=== PATIENT | female | born 1950 | race Caucasian/White ===

== ENCOUNTER 2017-12-01 17:46 | Inpatient (IN) | payer OTHER ==
[~2017-12-01] VITALS: Ht 167.6 cm; Wt 77.6 kg
--- NOTE | ~2017-12-01 | PR ---
[place], [place] PROGRESS NOTE NAME: OSVALDO RUSH UNIT #: [id number] ROOM: 311 DOCTOR: JENNY GARCIA DO BIRTHDATE: [birth year] DOS: 12/06/2017 CHIEF COMPLAINT: "Need medication." SUMMARY OF VISIT: The patient was interviewed in the dining room. She continues to complain to staff as well as Dr. Darling and myself of auditory and visual hallucinations. She had described wires and showed us wires in her bed that made up her bed alarm and she was concerned that these would be a bomb and she had this behavior again yesterday. We attempted to redirect her and explain that was a bed alarm to be up for her safety and that multiple nurses would come from the patino. She says she feels like she needs her medicines stabilized. MENTAL STATUS: She is alert and oriented . Mood seems to be more euthymic but can shift and change dramatically depending upon the time. She still displays visual and auditory hallucinations with delusions. Memory shows short-term gaps. PLAN: We will increase her Exelon capsules to 3 mg b.i.d., increasing her Seroquel to 200 mg at night in order to help her sleep. Klonopin was discontinued and we will continue her Depakote. We will continue to monitor and support and engage the patient in individual and group activities, returning to the least restrictive environment when stable. EJNNY GARCIA DO WINSOME DARLING MD CM:PNTRANS [id number] JENNY GARCIA DO 12/06/178 interface
--- NOTE | ~2017-12-01 | PR ---
[place], [place] PROGRESS NOTE NAME: OSVALDO RUSH UNIT #: [id number] ROOM: 311 DOCTOR: JENNY GARCIA DO BIRTHDATE: [birth year] DOS: 12/13/2017 CHIEF COMPLAINT: "I am not stopping to eat my breakfast." SUMMARY OF THE VISIT: The patient was interviewed in the dining patino where she was eating her breakfast and states that she wanted to eat her breakfast when it was warm. She continues to state her concerns about her finances and that she needs to them up. We discussed that we would plan for discharge for [facility] where she was before. MENTAL STATUS: This morning, she is alert and oriented. Mood seemed to be very euthymic. Affect is more appropriate. Do not have any symptoms of bianca or hypomania without overt auditory or visual hallucinations at this time, though she has had problems with them in the past. Short-term memory of events is poor. PLAN: We will increase her Namenda to 5 mg b.i.d. and will continue to monitor her other psychotropic regimen. We will continue to engage her in individual and group activities, returning back to [facility] when psychiatrically stable, possibly for tomorrow. JENNY GARCIA DO WINSOME DARLING MD CM:PNPIYUSH [id number] JENNY GARCIA DO 12/13/17 1224 interface
--- NOTE | ~2017-12-01 | PR ---
[place], [place] PROGRESS NOTE NAME: OSVALDO RUSH UNIT #: [id number] ROOM: 311 DOCTOR: JENNY GARCIA DO BIRTHDATE: [birth year] DOS: 12/07/2017 CHIEF COMPLAINT: "I didn't know who was involved in the contests." SUMMARY OF VISIT: The patient was interviewed in a dining room while eating breakfast. She stated that she did not know who was involved in the contests and appeared to have paranoid and delusional thoughts concerning that someone was plotting against her and to cause her harm or damage. According to staff, these thoughts had seemingly increased throughout the day yesterday. It can be related to the discontinuation of the Seroquel and the institution of the low dose of Fanapt and continue to monitor. MENTAL STATUS: She is alert, but has captured memory. Mood seems to be euthymic with quick shifts. She still does have paranoid, delusions and hallucinations that had seemed to worsen over the past day. PLAN: As discussed above, her increased delusions and paranoid, decrease in the Seroquel. The Fanapt will be increased to 4 mg b.i.d. and we will increase her Exelon patch as well to 6 mg b.i.d. We will monitor blood pressure to avoid orthostatic hypertension, encourage fluids as well as snacking. Discussed with nursing staff to monitor patient and again encourage fluids and possible snacking. If she were to have any signs and symptoms, please call medicine team. If the symptoms get worse, we will continue her other medications and her current dose of Depakote. We will continue to support, monitor and engage the individual and group activities. Returning to the least restrictive environment when she is psychiatrically stable. Encourage nursing staff to introduce themselves and discuss with the patient as this is the safe environment and they will be monitoring who comes, who leaves to make sure that they are supposed to be here to encourage the safety of all of the patients that we have including her. JENNY GARCIA DO [place], [place] PROGRESS NOTE NAME: OSVALDO RUSH UNIT #: [id number] ROOM: [facility] DOCTOR: JENNY GARCIA DO BIRTHDATE: [birth year] WINSOME DARLING MD CM:PNTRANS [id number] JENNY GARCIA DO 12/08/17 233 interface
--- NOTE | ~2017-12-01 | PR ---
[place], [place] PROGRESS NOTE NAME: OSVALDO RUSH UNIT #: [id number] ROOM: 311 DOCTOR: JENNY GARCIA DO BIRTHDATE: [birth year] DOS: 12/07/2017 CHIEF COMPLAINT: "Shaking a little bit, but it's better." SUMMARY OF THE VISIT: The patient was interviewed in the dining home. She states that her shaking and tremors have improved slightly. States that she is having a good morning and is able to eat her breakfast. She does complain that her knees are hurting her and often crack. She states that she is concerned about her finances. Per staff, she had hallucinations last night where she was looking for money in a shower drain and she had accused one of the staff of stealing a significant amount of money. I believe this relates back to her financial issues with her family and previously, she had told us that she met Dr. Stern in a hotel and was seeing him in therapy at that time and was worried how she is going to pay for that. MENTAL STATUS: She is alert and oriented with gaps. Mood seems to be euthymic but it can shift quickly and she continues to have hallucinations reported by staff. She does have short-term memory gaps. PLAN: We will discontinue the Seroquel and began Fanapt 1 mg twice daily. We will encourage to monitor blood pressure to avoid orthostatic hypotension and we will increase the Exelon patch to 4.5 mg b.i.d. Continue her other medications and her current dose of Depakote. We will continue to support, monitor and engage in individual and group activities, returning to the least restrictive environment when psychiatrically stable. JENNY GARCIA DO WINSOME STERN MD CM:PNTRANS [id number] JENNY GARCIA DO 12/07/17 1104 interface
--- NOTE | ~2017-12-01 | WRIGHTHP ---
[place], [place] PATIENT HISTORY AND PHYSICAL EXAM NAME: OSVALDO RUSH UNIT #: [id number] ROOM: 311 DOCTOR: WINSOME DARLING MD BIRTHDATE: [birth year] DOS: 12/04/2017 INITIAL PSYCHIATRIC EVALUATION CHIEF COMPLAINT: "I am here to get my meds adjusted." HISTORY OF PRESENT ILLNESS: This is a 67-year-old white female well known to me from her stay at [facility] in [place], [place]. The patient has a lengthy history of schizoaffective disorder as well as Craig's disease. Most recently, she has become increasingly more psychotic. She believes the doctors have decided to place maggots into her stomach and also has been seeing things that are not there. She was to be admitted to the psychiatric floor, but did have some ongoing medical issues that required her to be stabilized medically first. She is now brought down to the psychiatric unit for further psychiatric stabilization. PAST MEDICAL HISTORY: Remarkable for asthma, CVA, hypertension, GERD, glaucoma, hyperlipidemia, Craig's disease, hypomagnesemia, hypothyroidism, macrocytic anemia, metabolic encephalopathy, schizoaffective disorder and severe protein calorie malnutrition. MENTAL STATUS: The patient is alert and oriented with time gaps. She is fairly bright and pleasant. She does endorse multiple psychotic symptoms and does admit to hearing things and seeing things that are not there. She does have gaps in her short term memory and does process slowly at times. 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 PLAN: I will gradually start to taper the Klonopin to simplify her medication regimen. I would like to see if we can utilize a medicine specifically for Craig's movements such as Nuplazid or Austedo. I will go ahead and start her on Exelon patch 4.6 mg a day, continue to engage in individual and rajan milieu activity, returning to the least restrictive environment when psychiatrically stable. [place], [place] PATIENT HISTORY AND PHYSICAL EXAM NAME: OSVALDO RUSH UNIT #: [id number] ROOM: 311 DOCTOR: WINSOME DARLING MD BIRTHDATE: [birth year] WINSOME DARLING MD CM:HISPHYS:PATIENT HISTORY AND PHYSICAL EXAMINATION [id number] WINSOME DARLING MD 12/19/17 1550 interface
--- NOTE | ~2017-12-01 | PR ---
[place], [place] PROGRESS NOTE NAME: OSVALDO RUSH UNIT #: [id number] ROOM: 311 DOCTOR: WINSOME DARLING MD BIRTHDATE: [birth year] DOS: 12/10/2017 CHIEF COMPLAINT: "I think I feel better." SUMMARY OF THE VISIT: The patient was interviewed as she was finishing getting ready in the morning in her room. She reports that she is feeling a little better, a little tired from the medicines, but otherwise no other side effects are noted. Her tremor seemed to have lessened in frequency and intensity. She was complaining of some arthritic pain, but stated that the nurse gave her some Motrin yesterday, which seemed to help. MENTAL STATUS: She is alert and oriented. She does have some time gaps. Mood does seem to be trending towards euthymia. Affect is more appropriate. There is no bianca or hypomania and the delusions seem to be lessening in frequency and intensity. Short term memory has gaps. PLAN: I will increase her Fanapt slightly, bringing the morning dose to 8 mg in the morning and the nighttime dose to 12 mg at bedtime. Support and redirect. Engage in individual and rajan milieu activity, returning to the least restrictive environment when stable. WINSOME DARLING MD CM:PNTRANS [phone] WINSOME DARLING MD 12/10/17 1122 interface
--- NOTE | ~2017-12-01 | PR ---
[place], [place] PROGRESS NOTE NAME: OSVALDO RUSH UNIT #: [id number] ROOM: 311 DOCTOR: WINSOME DARLING MD BIRTHDATE: [birth year] DOS: 12/05/2017 CHIEF COMPLAINT: "I see the little people over there." SUMMARY OF THE VISIT: The patient was interviewed in her room as she was resting in bed. She continues to complain of auditory and visual hallucinations. This has been ongoing not only with me, but with nursing staff. She is tolerating the current medication regimen well. I would still like to explore the possibility of utilizing one of the newer drugs, specifically targeting Taras's disease. MENTAL STATUS: She is alert and oriented with gaps. Mood does seem to be more euthymic, but it also shifts rather dramatically from time to time and there is still the presence of significant psychosis. Memory for the most part shows short term gaps, but long-term is intact. PLAN: I will continue to titrate the Exelon upwards bringing it from 4.6 to 9.5 mg a day. Discontinue the Klonopin to simplify her regimen. Valproic acid level is therapeutic at 71.5. We will maintain her current dose of Depakote ER. Continue to support and monitor, engage in individual and rajan milieu activity, returning to the least restrictive environment when stable. WINSOME DARLING MD CM:PNTRANS [phone] WINSOME DRALING MD 12/05/17 1025 interface
--- NOTE | ~2017-12-01 | DS ---
[place], [place] DISCHARGE SUMMARY NAME: OSVALDO RUSH UNIT #: [id number] ROOM: 311 DOCTOR: WINSOME DARLING MD BIRTHDATE: [birth year] DOS: 12/14/2017 CHIEF COMPLAINT: "I am here to get my meds adjusted." HISTORY OF PRESENT ILLNESS: This is a 67-year-old white female well known to me from her stay at [facility] in [place], [place]. The patient has a rather lengthy history of schizoaffective disorder as well as Montague's disease. Most recently, she has become increasingly more psychotic and delusional. She believes the doctors have decided to order maggots to be placed in her stomach and also has been seeing things that are not there. She has been responding to these hallucinations. She has seen everything from snakes on the ground to small animals running through the halls of the residential. She was admitted now to [facility] at [facility] to rule out further organic issues, to stabilize on medication and to engage in individual and rajan milieu activity. PAST MEDICAL HISTORY: Remarkable for asthma, CVA, hypertension, GERD, glaucoma, hyperlipidemia, hypothyroidism, anemia, metabolic encephalopathy, protein calorie malnutrition, the Montague's disease and a lengthy history of schizoaffective disorder. SUMMARY OF HOSPITAL COURSE: The patient was admitted to the unit where I tapered and discontinued her Klonopin to simplify her medication regimen. Because there was a significant cognitive issue, I did start her on Exelon patch 4.6 mg a day and gradually this was titrated upwards to its maximum dose of 13.3 mg a day. Towards the latter part of her stay, this was augmented with Namenda 5 mg a day and then increased to 5 mg twice a day. Upon her return to [facility], I will further titrate this. To deal with the psychotic symptoms, she was reloaded with Invega Sustenna 156 mg IM. Nonetheless, her delusions persisted, so I ultimately needed to augment the effectiveness of the Invega with Fanapt. Fanapt was chosen as a secondary antipsychotic because of its low risk of extrapyramidal symptoms and tardive dyskinesia. The Fanapt dose was gradually increased from 1 mg twice a day to its maximum dose that she was on, which was 8 mg in the morning and 12 mg at night. With that combination of medication, the patient did have a significant alleviation of symptomatology. Nurses report she still had episodes of experiencing hallucinations, but these were much less frequent and less intense and she was able to be redirected readily. There was no agitation or aggression and there was no acting out on these beliefs. The patient tolerated the drug regimen well without any apparent side effects. There was no sedation, somnolence, extrapyramidal symptoms or tardive dyskinesia. The patient was improved well enough to be returned back to [facility]. I will follow her along with one of my nurse practitioners when she returns. MENTAL STATUS AT DISCHARGE: The patient is alert and oriented to person, place, very approximate to time. Mood does seem to be strongly trending towards euthymia. Affect is more appropriate. There is no bianca or hypomania. There are no overt auditory or visual hallucinations during my examination. Short term memory has some gaps, otherwise she is intact. [place], [place] DISCHARGE SUMMARY NAME: OSVALDO RUSH UNIT #: [id number] ROOM: [facility] DOCTOR: WINSOME DARLING MD BIRTHDATE: [birth year] FINAL DIAGNOSIS: Schizoaffective disorder. DISPOSITION: To return back to [facility]. I will follow her upon her return. PLAN: All of her prescriptions have been printed and will be sent with her. She is medically and psychiatrically stable. Her biopsychosocial needs will be met by the staff at [facility]. WINSOME DARLING MD CM:DISCHARG [id number] WINSOME DARLING MD 12/14/17 1339 interface
--- NOTE | ~2017-12-01 | PR ---
[place], [place] PROGRESS NOTE NAME: OSVALDO RUSH UNIT #: [id number] ROOM: 311 DOCTOR: WINSOME DARLING MD BIRTHDATE: [birth year] DOS: 12/11/2017 CHIEF COMPLAINT: "Make certain I have my medicine. All they told me I have left is Motrin." SUMMARY OF THE VISIT: The patient was interviewed as she rested quietly in bed. She was convinced that the only medicine that she had on her chart was Motrin and she was not receiving any of her other medicines. I redirected her and supported her and let her know that this was not the case and that I would have the nurse later go over her medication list with her. She nodded in approval. Overall, there does seem to be a slight trend in improvement. MENTAL STATUS: She is alert and oriented to person, place, and approximate to time. Mood does seem to be trending towards euthymia. Affect is more appropriate. There is no bianca or hypomania. She remains somewhat delusional, but this tends to fluctuate. Memory has gaps. PLAN: I will renew her Symmetrel and Lotrimin. Maintain her other medications. Engage in individual and rajan milieu activities, returning to the least restrictive environment when stable. WINSOME DARLING MD CM:PNTRANS 4 WINSOME DARLING MD 12/11/1704 interface
--- NOTE | ~2017-12-01 | PR ---
[place], [place] PROGRESS NOTE NAME: OSVALDO RUSH UNIT #: [id number] ROOM: 311 DOCTOR: WINSOME DARLING MD BIRTHDATE: [birth year] DOS: 12/12/2017 CHIEF COMPLAINT: "Oh there you are, I am feeling better." SUMMARY OF THE VISIT: The patient was interviewed as we walked in the patino down towards the group therapy room. She did report that she is sleeping better and overall feels much better. I did discuss with her that I was at [facility] on Tuesday and multiple nurses did come up to me asking how she was doing, this seemed to tickle her and she smiled readily. She does seem to be improving day by day. Nurses note that sometimes in the late evening or at night some of her psychotic symptoms seem to peak, but she is more redirectable. She is tolerating the current medication regimen well. MENTAL STATUS EXAMINATION: This morning, she is alert and oriented times 3. Mood does seem to be fairly euthymic. Affect more appropriate. There is no bianca or hypomania. There are no overt auditory or visual hallucinations at this point. Memory for short term events is poor, otherwise she is intact. PLAN: I will go ahead and augment her current regimen with Namenda 5 mg a day as I begin to titrate this upward to augment the effectiveness of the Exelon. We will continue her current dose of Fanapt and Invega Sustenna, engage in individual and rajan milieu activity, returning back then to [facility] when psychiatrically stable. WINSOME DARLING MD CM:PNTRANS [phone] WINSOME DARLING MD 12/12/17 1056 interface
--- NOTE | ~2017-12-01 | PR ---
[place], [place] PROGRESS NOTE NAME: OSVALDO RUSH UNIT #: [id number] ROOM: 311 DOCTOR: JENNY GARCIA DO BIRTHDATE: [birth year] DOS: 12/09/2017 CHIEF COMPLAINT: "I want to talk to the doctor right now." SUMMARY OF VISIT: The patient was interviewed in the dining room. The patient was previously agitated and mentioned she wanted to speak to Dr. Stern several times. She stated that she was not feeling well and wanted to talk to Dr. Stern personally without other individuals present. Per the nursing staff, her paranoid and delusional thoughts have increased. Her visual and auditory hallucinations have also increased. They report that she is seeing snakes, curling out of worms, and seeing other various things. MENTAL STATUS: She is alert. Her mood is euthymic but she does have some significant changes and she continues to have paranoia. Auditory and visual hallucinations and delusion that seemed to be worsening over the past 2 days. PLAN: Her Seroquel was discontinued few days ago and ____ has been slowly increased. We will increase it to 6 mg in the morning and 2 mg at night. We will continue to monitor her pressure and encourage that she drink fluids as well as eat snacks if needed. We discussed with nursing staff to monitor and we will continue her other current regimen at this time. We will continue to engage her and promote group individual activities and therapy and plan for discharge to the least restrictive environment when psychiatrically stable. JENNY GARCIA DO WINSOME STERN MD CM:PNPIYUSH [id number] JENNY GARCIA DO 12/10/17 0439 interface
[~2017-12-01 17:46] MED LIST: ALBUTEROL 3 ML 33 ML INH; ATIVAN PO; ATIVAN2 M1 IM; ATORVASTATIN CA20 M1 PO; BENADRYL25 M2 PO; CLOPIDOGREL75 MG PO; DIVALPROEX SOD500 MG PO; DRISDOL50000 IU PO; FLOVENT HFA12 GM INH; FUROSEMIDE20 M1 PO; GEODON20 MG IM; INVEGA SUSTENN156 MG IM; INVEGA9 MG PO; LEVOTHYROXINE0.1 M1 PO; LISINOPRIL20 MG PO; LUMIGAN50 DRP OPH; MELATONIN3 MG PO; MUCINEX ER600 MG PO; NUED1CAP PO; QUETIAPINE FUM100 M3 PO; RANITIDINE75 MG PO; SYSTANE ULTRA 010 M1 OP; TETRABENAZINE12.5 MG PO; TRAMADOL HCL50 MG PO; [UNRECOGNIZED DRUG - OTHER] IM
[2017-12-01] MEDS ORDERED: LOTRIMIN AF12 GM T (18:14)
[2017-12-01] MEDS ORDERED: MILK OF MA400 MG/5 M PO (18:16)
[2017-12-01] MEDS ORDERED: [UNRECOGNIZED DRUG - OTHER] PO (18:17)
[2017-12-01] MEDS ORDERED: INVEGA SUSTENN156 MG IM (18:18)
[2017-12-01] MEDS ORDERED: ROBITUSSIN5 ML PO (18:20)
[2017-12-01] MEDS ORDERED: SYSTANE 0.3-0.415 ML OU (18:21)
[2017-12-01] MEDS ORDERED: TETRABENAZINE12.5 MG PO (18:22)
[2017-12-01] MEDS ORDERED: TYLENOL325 M1 PO (18:23)
[2017-12-01] MEDS ORDERED: DEPAKOTE ER500 MG PO (18:25)
[2017-12-01] MEDS ORDERED: DULCOLAX10 M1 R (18:26)
[2017-12-01] MEDS ORDERED: VITAMIN D50000 UNIT PO (18:27)
[2017-12-01] MEDS ORDERED: EXELON1 EAC1 T (18:28)
[2017-12-01] MEDS ORDERED: FLOVENT HFA12 GM INH (18:29)
[2017-12-01] MEDS ORDERED: NEURONTIN300 MG PO (18:30)
[2017-12-01] MEDS ORDERED: HALOPERIDOL5 MG PO (18:31)
[2017-12-01] MEDS ORDERED: KLONOPIN0.5 MG PO (18:32)
[2017-12-01] MEDS ORDERED: LEVOTHYROXINE100 MC1 PO (18:33)
[2017-12-01] MEDS ORDERED: ACCUNEB 0.1.25 MG/1 INH (18:34)
[2017-12-01] MEDS ORDERED: AMANTADINE HCL100 M1 PO (18:35)
[2017-12-01] MEDS ORDERED: ALDACTONE25 M1 PO (18:35)
[2017-12-01] MEDS ORDERED: CYMBALTA60 MG PO (18:36)
[2017-12-01] MEDS ORDERED: ASPIRIN81 M1 PO (18:36)
[2017-12-01] MEDS ORDERED: IBUPROFEN600 MG PO (18:48)
[2017-12-02] MEDS ORDERED: HALDOL5 MG PO (16:07)
[2017-12-03] MEDS ORDERED: MIRTAZAPINE15 M2 PO (13:49)
[2017-12-03 20:30] VITALS: BP 146/64
[2017-12-03 23:17] VITALS: BP 146/64
[2017-12-04 07:48] VITALS: BP 137/78
[2017-12-04 20:00] VITALS: BP 146/77
[2017-12-05 07:35] VITALS: BP 140/80
[2017-12-05 20:00] VITALS: BP 121/76
[2017-12-06 08:18] VITALS: BP 119/82
[2017-12-06 19:56] VITALS: BP 116/64
[2017-12-07 08:18] VITALS: BP 119/81
[2017-12-07 08:36] VITALS: BP 119/81
[2017-12-07 20:00] VITALS: BP 131/75
[2017-12-08 08:57] VITALS: BP 122/76
[2017-12-08 21:00] VITALS: BP 113/66
[2017-12-09 07:26] VITALS: BP 124/76
[2017-12-09 20:21] VITALS: BP 109/62
[2017-12-10 07:22] VITALS: BP 136/70
[2017-12-10 19:33] VITALS: BP 145/81
[2017-12-11 07:23] VITALS: BP 129/69
[2017-12-11 19:43] VITALS: BP 131/71
[2017-12-12 07:54] VITALS: BP 116/64
[2017-12-12 20:26] VITALS: BP 111/58
[2017-12-13 08:02] VITALS: BP 119/67
[2017-12-13 19:37] VITALS: BP 124/68
[2017-12-14 09:23] VITALS: BP 138/73
[2017-12-14] MEDS ORDERED: NAMENDA-5 PO (11:19)
[2017-12-14] MEDS ORDERED: INVEGA SUSTENN156 MG IM (11:19)
[2017-12-14] MEDS ORDERED: FANAPT8 MG PO (11:19)
[2017-12-14] MEDS ORDERED: DIVALPROEX SOD500 M1 PO (11:19)
[2017-12-14] MEDS ORDERED: RIVASTIGMINE TAR3 M1 PO (11:19)
[2017-12-14] MEDS ORDERED: FANAPT12 MG PO (11:19)
[2017-12-14] MEDS ORDERED: MIRTAZAPINE15 M2 PO (11:19)
[2017-12-14] MEDS ORDERED: Lidoderm 5% Patch T (13:54)
== END 2017-12-14 15:20 | disposition other institution (70) | DRG 885 ==
LOC: 3N 17:46
DX: F25.9 Schizoaffective disorder, unspecified (principal); N17.0 Acute kidney failure with tubular necrosis; A41.9 Sepsis, unspecified organism; E87.2 Acidosis; E44.0 Moderate protein-calorie malnutrition; J18.0 Bronchopneumonia, unspecified organism; D53.1 Other megaloblastic anemias, not elsewhere classified; F22 Delusional disorders; G10 Huntington's disease; F02.80 Dementia in other diseases classified elsewhere, unspecified severity, without behavioral disturbance, psychotic disturbance, mood disturbance, and anxiety; J45.909 Unspecified asthma, uncomplicated; E03.9 Hypothyroidism, unspecified; E78.5 Hyperlipidemia, unspecified; H40.9 Unspecified glaucoma; I10 Essential (primary) hypertension; Z86.73 Personal history of transient ischemic attack (TIA), and cerebral infarction without residual deficits; K21.9 Gastro-esophageal reflux disease without esophagitis; F31.9 Bipolar disorder, unspecified; D72.829 Elevated white blood cell count, unspecified; F10.10 Alcohol abuse, uncomplicated; Z87.891 Personal history of nicotine dependence; Z88.7 Allergy status to serum and vaccine

== ENCOUNTER 2017-12-02 11:25 | Inpatient (IN) | payer OTHER ==
[~2017-12-02] VITALS: Ht 167.6 cm; Wt 81.6 kg
--- NOTE | ~2017-12-02 | EKG ---
[place], [place] ELECTROCARDIOGRAM REPORT NAME: OSVALDO RUSH UNIT #: [id number] ROOM: [facility] DOCTOR: CAMILO LOCKHART,SARI BIRTHDATE: [birth year] DOS: 12/02/2017 TIME: 11:56. IMPRESSION: 1. Sinus rhythm. 2. Baseline artifacts. 3. Nondiagnostic inferolateral ST-T changes. 4. Normal QT interval. SARI PAGE MD CM:EKGRPT:ELECTROCARDIOGRAM REPORT [id number] SARI PAGE MD
--- NOTE | ~2017-12-02 | CON ---
[place], [place] REPORT OF CONSULTATION NAME: OSVALDO RUSH UNIT #: [id number] ROOM: 525 DOCTOR: WINSOME DARLING MD BIRTHDATE: [birth year] DOS: 12/03/2017 CHIEF COMPLAINT: "Oh the pain was so bad." HISTORY OF PRESENT ILLNESS: This is a 67-year-old white female who is well known to me from her stay at [facility] [place] in [place], [place]. The patient had undergone a significant change in mental status while there, becoming acutely psychotic and manic. The patient started stating that someone had dumped a whole bucket of maggots into her stomach because someone thought it would just be a cool thing to do. The patient had become noncompliant with all aspects of her care, refusing meds, refusing food and fluids and becoming verbally and physically combative with staff. The patient was sent to the Emergency Room at [facility] for medical clearance; however, she was found to have significant medical issues that needed to be addressed first, so she was ultimately sent to the 5th floor at [facility] for medical stabilization, awaiting admission to the [facility]. PAST MEDICAL HISTORY: Remarkable for a long history of schizoaffective disorder as well as a significant history of Flaxville's disease. MENTAL STATUS EXAMINATION: The patient is alert and oriented to person, place. She did recognize me, but could not place where she remembered me from and she is very approximate to time. Mood does seem to be somewhat labile. 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 She also notes fluctuations in her appetite. She does jump from topic to topic and is somewhat flighty in her overall level of organization. She does endorse marked delusions. DIAGNOSES: Schizoaffective disorder and Flaxville's disease. PLAN: I will go ahead and discontinue the Cymbalta in lieu of Remeron 15 mg at bedtime as this should aid sleep and improve appetite much more rapidly. The patient was on a higher dose of Depakote ER at the [facility] [place], so I will increase Depakote ER from 500 mg at bedtime to 1500 mg at bedtime. I will eliminate Restoril to simplify her drug regimen. Once you feel that she is medically stable, I am okay with transferring her to the [facility] for further medication stabilization, awaiting admission back to [facility] when stable. [place], [place] REPORT OF CONSULTATION NAME: OSVALDO RUSH UNIT #: [id number] ROOM: [facility] DOCTOR: WINSOME DARLING MD BIRTHDATE: [birth year] WINSOME DARLING MD CM:CONSTR:REPORT OF CONSULTATION 1 12/03/17924 interface
[~2017-12-02 11:25] MED LIST changes: +ACCUNEB 0.1.25 MG/1 INH; +ALDACTONE25 M1 PO; +AMANTADINE HCL100 M1 PO; +ASPIRIN81 M1 PO; +CYMBALTA60 MG PO; +DEPAKOTE ER500 MG PO; +DULCOLAX10 M1 R; +EXELON1 EAC1 T; +HALOPERIDOL5 MG PO; +IBUPROFEN600 MG PO; +KLONOPIN0.5 MG PO; +LEVOTHYROXINE100 MC1 PO; +LOTRIMIN AF12 GM T; +MILK OF MA400 MG/5 M PO; +NEURONTIN300 MG PO; +ROBITUSSIN5 ML PO; +SYSTANE 0.3-0.415 ML OU; +TYLENOL325 M1 PO; +VITAMIN D50000 UNIT PO; +[UNRECOGNIZED DRUG - OTHER] PO
[2017-12-02 11:30] VITALS: BP 130/71
[2017-12-02 12:02] LABS: BASO % 0.3 % (0.0-1.0); EOS # 0.1 10*3/uL (0.0-0.4); EOS % 2.3 % (1.0-4.0); HEMATOCRIT 31.4 % (37.0-47.0); HEMOGLOBIN 10.6 g/dl (12.0-16.0); LYMPH # 1.7 10*3/uL (1.3-4.4); LYMPH % 27.2 % (27.0-41.0); MEAN CELL VOLUME 105.4 fl (81.0-99.0); MEAN CORPUSCULAR HGB 35.6 pg (27.0-31.0); MEAN CORPUSCULAR HGB CONC 33.8 g/dl (33.0-37.0); MEAN PLATELET VOLUME 10.2 fl (9.6-12.3); MONO # 0.7 10*3/uL (0.1-1.0); MONO % 11.4 % (3.0-9.0); NEUT # 3.6 10*3/uL (2.3-7.9); NEUT % 58.3 % (47.0-73.0); PLATELET COUNT AUTOMATED 118 10*3/uL (130-400); RED BLOOD COUNT 2.98 10*6/uL (4.10-5.10); RED CELL DISTRI WIDTH 14.3 % (0-14.5); WHITE BLOOD COUNT 6.2 10*3/uL (4.8-10.8)
[2017-12-02 12:10] LABS: ACT PARTIAL THROMBO TIME 23.7 SECONDS (20.8-31.5)
[2017-12-02 12:18] LABS: ALBUMIN 2.9 gm/dl (3.1-4.5); ALKALINE PHOSPHATASE 68 U/L (45-117); BUN 23 mg/dl (7-24); CHLORIDE 107 mmol/L (98-107); CREATININE 1.06 mg/dL (0.55-1.02); LIPASE 119 U/L (73-393); POTASSIUM 4.3 mmol/L (3.5-5.1); SGOT/AST 23 IU/L (3-35); SGPT/ALT 37 U/L (12-78); SODIUM 142 mmol/L (136-145); TOTAL PROTEIN 6.5 gm/dL (6.4-8.2)
[2017-12-02 12:22] LABS: TROPONIN I < 0.015 ng/ml (<0.045)
[2017-12-02 12:27] LABS: VALPROIC ACID (DEPAKENE) 97.3 ug/ml (50-100)
[2017-12-02 12:44] LABS: BILIRUBIN NEGATIVE (NEGATIVE); BLOOD NEGATIVE (NEGATIVE); CLARITY SL CLOUDY (CLEAR); COLOR YELLOW (YELLOW); GLUCOSE NEGATIVE (NEGATIVE); KETONE TRACE (NEGATIVE); LEUKO ESTERASE NEGATIVE (NEGATIVE); NITRITE NEGATIVE (NEGATIVE); PH 5.5 (5.0-9.0); SPECIFIC GRAVITY 1.025 (1.005-1.030)
[2017-12-02 12:51] LABS: BACTERIA 1+
[2017-12-02 14:52] VITALS: BP 134/89
[2017-12-02 16:00] VITALS: BP 137/98
[2017-12-02] MEDS ORDERED: HALDOL5 MG PO (16:07)
[2017-12-02 20:00] VITALS: BP 114/80
[2017-12-03] VITALS: BP 113/55
[2017-12-03 07:25] LABS: BASO % 0.2 % (0.0-1.0); EOS # 0.1 10*3/uL (0.0-0.4); EOS % 1.4 % (1.0-4.0); HEMATOCRIT 30.8 % (37.0-47.0); LYMPH # 1.3 10*3/uL (1.3-4.4); LYMPH % 23.4 % (27.0-41.0); MEAN CELL VOLUME 105.5 fl (81.0-99.0); MEAN CORPUSCULAR HGB 34.2 pg (27.0-31.0); MEAN CORPUSCULAR HGB CONC 32.5 g/dl (33.0-37.0); MEAN PLATELET VOLUME 10.8 fl (9.6-12.3); NEUT # 3.3 10*3/uL (2.3-7.9); NEUT % 57.8 % (47.0-73.0); PLATELET COUNT AUTOMATED 111 10*3/uL (130-400); RED BLOOD COUNT 2.92 10*6/uL (4.10-5.10); RED CELL DISTRI WIDTH 14.1 % (0-14.5); WHITE BLOOD COUNT 5.7 10*3/uL (4.8-10.8)
[2017-12-03 07:48] LABS: ACT PARTIAL THROMBO TIME 23.4 SECONDS (20.8-31.5)
[2017-12-03 07:50] LABS: ALBUMIN 2.9 gm/dl (3.1-4.5); ALKALINE PHOSPHATASE 67 U/L (45-117); BUN 18 mg/dl (7-24); CHLORIDE 107 mmol/L (98-107); CHOLESTEROL 147 mg/dL (<200); CREATININE 0.88 mg/dL (0.55-1.02); FREE T4 1.23 ng/dl (0.76-1.46); HDL CHOLESTEROL 74 mg/dl (40-60); LDL CHOLESTEROL 57 mg/dL (9-159); PHOSPHOROUS 2.4 mg/dL (2.5-4.9); POTASSIUM 4.2 mmol/L (3.5-5.1); SGOT/AST 23 IU/L (3-35); SGPT/ALT 34 U/L (12-78); SODIUM 141 mmol/L (136-145); TOTAL PROTEIN 6.4 gm/dL (6.4-8.2); TRIGLYCERIDES 78 mg/dl (<150); VLDL CHOLESTEROL 16 mg/dL (6-40)
[2017-12-03 08:00] VITALS: BP 145/78
[2017-12-03 08:39] LABS: VITAMIN D, 25-HYDROXY 113.6 ng/mL (30-100)
[2017-12-03] MEDS ORDERED: MIRTAZAPINE15 M2 PO (13:49)
[2017-12-03 16:00] VITALS: BP 138/79
== END 2017-12-03 20:29 | disposition home health service (06) | DRG 70 ==
LOC: ED 11:25 → EDHOLD 13:55 → 5E 14:10
PROVIDERS: Emergency Medicine; Internal Medicine
DX: G93.41 Metabolic encephalopathy (principal); E43 Unspecified severe protein-calorie malnutrition; D69.6 Thrombocytopenia, unspecified; E83.41 Hypermagnesemia; F25.0 Schizoaffective disorder, bipolar type; E86.0 Dehydration; G10 Huntington's disease; Z68.27 Body mass index [BMI] 27.0-27.9, adult; R10.9 Unspecified abdominal pain; D53.9 Nutritional anemia, unspecified; J45.20 Mild intermittent asthma, uncomplicated; E06.3 Autoimmune thyroiditis; K21.9 Gastro-esophageal reflux disease without esophagitis; H40.9 Unspecified glaucoma; E78.5 Hyperlipidemia, unspecified; I10 Essential (primary) hypertension; Z88.5 Allergy status to narcotic agent; Z88.8 Allergy status to other drugs, medicaments and biological substances; Z79.82 Long term (current) use of aspirin; Z79.899 Other long term (current) drug therapy; Z86.73 Personal history of transient ischemic attack (TIA), and cerebral infarction without residual deficits; Z90.710 Acquired absence of both cervix and uterus; Z72.89 Other problems related to lifestyle; Z87.891 Personal history of nicotine dependence; Z81.1 Family history of alcohol abuse and dependence; Z81.8 Family history of other mental and behavioral disorders

== ENCOUNTER 2020-05-13 17:45 | Inpatient (IN) | payer OTHER ==
[2020-05-13] VITALS (27 sets, daily range): BP systolic 63–108; BP diastolic 38–59
[~2020-05-13] VITALS: Ht 167.6 cm; Wt 81.6 kg
[~2020-05-13 17:45] MED LIST changes: +ANECREAM5 GM T; +ARTANE5 M1 PO; +CELEBREX100 MG PO; +COGENTIN0.5 MG PO; +DIVALPROEX SOD500 M1 PO; +DULCOLAX STOOL100 M1 PO; +ELIQUIS2.5 M1 PO; +EXELON1 EAC2 TD; +FANAPT12 MG PO; +FANAPT8 MG PO; +FISH OIL OMEGA1 EAC3 PO; +FLEET ENEMA 13133 ML R; +HALDOL5 MG PO; +HYDROXYZINE HCL50 MG PO; +INVEGA SUSTENN234 MG IM; +Ipratropium Brom3 ML INH; +LAC-HYDRIN FIV226 GM T; +Lidoderm 5% Patch T; +MIRTAZAPINE15 M2 PO; +MULTIPLE VITAM1 EAC1 PO; +NAMENDA-5 PO; +NAMENDA10 MG PO; +NEURONTIN100 MG PO; +RIVASTIGMINE TAR3 M1 PO; +SEROQUEL200 MG PO; +SYNTHROID,LEV112 MCG PO; +SYSTANE 0.3-0.415 ML OP
--- NOTE | 2020-05-13 17:51 | NUR ---
PATIENT IN ICU AFTER RAPID RESPONSE FOR HYPOTENTION 50/20. PT DID RESPOND TO VERBAL STIMULI AND WAS WARM & DRY TO TOUCH. COLOR ASHEN..BLOOD GLUCOSE AT [address] WORTHY & DR CHAUDHRY AT BEDSIDE PLACING EMERGENCY CENTRAL LINE. IV PLACED DURING RAPID RESPONSE TO LEFT FOREARM ON 3rd ATTEMPT..2 UNSUCCESSFUL ATTEMPTS MADE VEIN HIT BUT UNABLE TO THREAD WITHOUT BLOWING VESSEL.
[2020-05-13 18:27] LABS: HEMATOCRIT 30.3 % (37.0-47.0); MEAN CELL VOLUME 95.6 fl (81.0-99.0); MEAN CORPUSCULAR HGB 30.3 pg (27.0-31.0); MEAN CORPUSCULAR HGB CONC 31.7 g/dl (33.0-37.0); MEAN PLATELET VOLUME 10.6 fl (9.6-12.3); PLATELET COUNT AUTOMATED 84 10*3/uL (130-400); RED BLOOD COUNT 3.17 10*6/uL (4.10-5.10)
--- NOTE | 2020-05-13 18:41 | NUR ---
#18 MATHIS PLACED WITHOUT DIFFICULTY. MOISTURE TO ABD FOLD.. INCONT OF BM BOYCE/BROWN IN COLOR..LITER #2 OF IVF INFUSING..EXELON PATCH REMOVED FROM RIGHT SHOULDER - DR CHAUDHRY HERE AND MADE AWARE OF PUPILS
[2020-05-13 18:47] LABS: PLATELET SUFFICIENCY LOW (NORMAL); TOTAL CELLS COUNTED 100 #CELLS
[2020-05-13 18:54] LABS: ALBUMIN 2.4 gm/dl (3.1-4.5); ALKALINE PHOSPHATASE 102 U/L (45-117); BUN 29 mg/dl (7-24); CHLORIDE 113 mmol/L (98-107); FREE T4 1.45 ng/dl (0.76-1.46); POTASSIUM 3.7 mmol/L (3.5-5.1); SODIUM 142 mmol/L (136-145); TOTAL PROTEIN 4.9 gm/dL (6.4-8.2)
[2020-05-13 18:58] LABS: SGOT/AST 1558 IU/L (3-35); SGPT/ALT 1094 U/L (12-78); TROPONIN I < 0.015 ng/ml (<0.045)
[2020-05-13 18:59] LABS: THYROID STIM HORMONE (HS) 0.582 uIU/ml (0.358-4.75)
[2020-05-13 19:15] LABS: BACTERIA TRACE; BILIRUBIN NEGATIVE; BLOOD NEGATIVE (NEGATIVE); CLARITY CLEAR (CLEAR); COLOR YELLOW (YELLOW); GLUCOSE NEGATIVE; KETONE NEGATIVE; LEUKO ESTERASE NEGATIVE (NEGATIVE); NITRITE NEGATIVE (NEGATIVE); RBC 0-2 rbc/hpf (0-2)
[2020-05-13 19:28] LABS: ABG BASE EXCESS -4.6 mmol/L (-2.0-2.0); ARTERIAL BLOOD GAS PH 7.385 (7.35-7.45)
[2020-05-13] MEDS ORDERED: ZINC-220220 MG PO (19:44)
--- NOTE | 2020-05-13 20:24 | NUR ---
CT ON HOLD UNTIL PT B/P STABLE PER DR. VERDE. SANDRA STARK RN
[2020-05-14] VITALS (96 sets, daily range): BP systolic 79–125; BP diastolic 36–76
--- NOTE | 2020-05-14 00:26 | NUR ---
PT. REMAINS LETHARGIC. RESPONDS TO PAINFUL STIMULI. PULSE OX 97% ON RA. LEVOPHED AT 10MICS WITH A MAP OF 65. LUNGS REMAIN DIMINISHED BILAT. ABDOMEN SOFTLY DISTENED AND HYPOACTIVE, ABDOMEN GUARDED WHEN ASSESSED. BILAT LOWER LEG EDEMA NOTED. MLC IN RIGHT JUGULAR ASYMPT. MATHIS DRAINING A PALE ARTURO URINE, STRONG SMELLING CONCENTRATED URINE. IVF INFUSING IN ADDITION TO LEVOPHED. SANDRA STARK RN
--- NOTE | 2020-05-14 02:50 | NUR ---
[facility] CALLED AND WANTED TO SPEAK WITH THE DOCTOR REGARDING CT RESULTS. GIVEN DR. GONZALEZ PHONE NUMBER AND NOTIFIED HER OF CT RESULTS. SANDRA STARK RN
[2020-05-14 05:43] LABS: ALBUMIN 2.4 gm/dl (3.1-4.5); CREATININE 1.36 mg/dL (0.55-1.02); FREE T4 1.4 ng/dl (0.76-1.46); POTASSIUM 3.7 mmol/L (3.5-5.1); TOTAL PROTEIN 5.4 gm/dL (6.4-8.2)
[2020-05-14 05:48] LABS: THYROID STIM HORMONE (HS) 0.412 uIU/ml (0.358-4.75)
[2020-05-14 06:23] LABS: HEMATOCRIT 32.7 % (37.0-47.0); MEAN CELL VOLUME 95.3 fl (81.0-99.0); MEAN CORPUSCULAR HGB 30.6 pg (27.0-31.0); MEAN CORPUSCULAR HGB CONC 32.1 g/dl (33.0-37.0); MEAN PLATELET VOLUME 11.6 fl (9.6-12.3); PLATELET COUNT AUTOMATED 109 10*3/uL (130-400); RED BLOOD COUNT 3.43 10*6/uL (4.10-5.10); RED CELL DISTRI WIDTH 14.5 % (0-14.5); WHITE BLOOD COUNT 22.3 10*3/uL (4.8-10.8)
--- NOTE | 2020-05-14 06:37 | NUR ---
DR. GODDARD NOTIFIED OF CONSULT. SANDRA STARK RN
[2020-05-14 06:43] LABS: ACT PARTIAL THROMBO TIME 36.8 SECONDS (20.0-32.1); INTERNATIONAL NORM RATIO 1.5 (2.0-3.5)
[2020-05-14 06:48] LABS: BURR CELLS FEW; OVALOCYTES FEW; PLATELET SUFFICIENCY LOW (NORMAL); TOTAL CELLS COUNTED 100 #CELLS
--- NOTE | 2020-05-14 07:43 | NUR ---
PHYSICAL THERAPY Screen received, pt transfered from [facility] to [facility] on 05/13/20 due to low blood pressure. Please consult PT as pt medically appropriate and has had a decline in baseline function, thank you. Rosalie Patton PT
--- NOTE | 2020-05-14 07:45 | NUR ---
OT NOTE Occupational therapy order received when patient was admitted to the [facility]. Patient was transferred to the [facility] following a rapid response on 05/13/2020. Will need new orders when patient is medically appropriate for an OT evaluation. Thank you. Haylee Ruiz OTR/L
--- NOTE | 2020-05-14 07:45 | NUR ---
RESTING IN BED. ALERT AND ORIENTED TIMES THREE. RIJ MLC INTACT AND INFUSING LEVOPHED GTT INFUSING AT 13 SENTHIL'S AND NS INFUSING AT 80CC/HR WITHOUT DIFFICULTY. ABDOMEN SOFTLY DISTENDED WITH HYPOACTIVE BOWEL SOUNDS. COMPLAINS OF LLQ PAIN AND TENDER WITH PALPATION. PULSE OX 97% ON ROOM AIR. LOWER LEGS RED AND SWOLLEN. MATHIS DRAINING DARK ARTURO URINE.
--- NOTE | 2020-05-14 09:00 | NUR ---
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
--- NOTE | 2020-05-14 09:30 | NUR ---
DR. GODDARD HERE TO SEE PATIENT
--- NOTE | 2020-05-14 11:22 | NUR ---
Although pt is no longer a [facility] pt, pt's mother Shawnee has placed numerous calls to the [facility] this AM requesting pt information. This life underwriter phoned pt's legal guardian Alyssia Morton for instruction. Per Alyssia, pt's mother is not to receive any information about pt. Alyssia stated that pt's daughter Fadumo Carlos is allowed information and Fadumo can then provide information to Shawnee.
--- NOTE | 2020-05-14 13:25 | NUR ---
Notified Yuko Juárez Ammunition Officer at [facility] of Discharge to Medical Floor.
--- NOTE | 2020-05-14 15:06 | NUR ---
DR. GODDARD CALLED IN AND UPDATED ON PATIENT'S CONDITION.
--- NOTE | 2020-05-14 16:22 | NUR ---
TAP WATER GIVEN WITH RETURN OF BROWN LIQUID.
--- NOTE | 2020-05-14 17:26 | NUR ---
INCONTINENT OF BROWN LIQUID STOOL SMALL AOUNT
--- NOTE | 2020-05-14 19:45 | NUR ---
TYLENOL 2 PO GIVEN FOR C/O'S "SINUS HEADACHE". WILL MONITOR.
--- NOTE | 2020-05-14 20:13 | NUR ---
RESTING IN BED WITH HOB ELEVATED. SIDE RAILS UP X'S 2. CALL LIGHT IN REACH. PLEASANT AND COOPERATIVE AT PRESENT. HEP LOCK INTACT LA. RIJ MLC INTACT. LEVOPHED GTT CONT AT 8MICS, IV FLUIDS CONT. MATHIS PATENT AND DRAINING ARTURO URINE. PULSE OX 96% ON RA. NO DISTRESS NOTED.
--- NOTE | 2020-05-14 20:45 | NUR ---
EARLIER TYLENOL EFFECTIVE. 2129 COMPLETE BED BATH GIVEN AND LINENS CHANGED.
--- NOTE | 2020-05-14 22:05 | NUR ---
RESTING IN BED WATCHING TV. LEVOPHED GTT CONT. SEE INTERVENTION SCREEN FOR Q15MIN BP'S.
[2020-05-15] VITALS (51 sets, daily range): BP systolic 90–134; BP diastolic 39–92
--- NOTE | 2020-05-15 00:12 | NUR ---
RESTIN GIN BED WITH EYES CLOSED. APPEARS TO BE SLEEPING. REMAINS WITHOHT C/O'S ABBD PAIN.
[2020-05-15 05:49] LABS: ALBUMIN 2.3 gm/dl (3.1-4.5); CHLORIDE 116 mmol/L (98-107); CREATININE 0.99 mg/dL (0.55-1.02); POTASSIUM 3.7 mmol/L (3.5-5.1); SGOT/AST 309 IU/L (3-35); SGPT/ALT 598 U/L (12-78); SODIUM 144 mmol/L (136-145); TOTAL PROTEIN 5.2 gm/dL (6.4-8.2)
[2020-05-15 05:50] LABS: ALKALINE PHOSPHATASE 142 U/L (45-117)
[2020-05-15 05:55] LABS: HEMATOCRIT 31.4 % (37.0-47.0); MEAN CORPUSCULAR HGB CONC 31.2 g/dl (33.0-37.0); MEAN PLATELET VOLUME 12.1 fl (9.6-12.3); PLATELET COUNT AUTOMATED 85 10*3/uL (130-400); RED BLOOD COUNT 3.27 10*6/uL (4.10-5.10); RED CELL DISTRI WIDTH 14.6 % (0-14.5); WHITE BLOOD COUNT 15.7 10*3/uL (4.8-10.8)
[2020-05-15 06:00] LABS: BUN 19 mg/dl (7-24)
--- NOTE | 2020-05-15 06:04 | NUR ---
LEVOPHED CONT AT 6MICS. RIJ MLC INTACT. HEP LOCK INTACT. MATHIS PATENT. REMAINS WITHOUT C/O'S. REMAINS NPO. NO DISTRESS NOTED. CONDITION GUARDED.
[2020-05-15 06:18] LABS: TOTAL CELLS COUNTED 100 #CELLS
[2020-05-15 06:19] LABS: BURR CELLS FEW; PLATELET SUFFICIENCY LOW (NORMAL)
--- NOTE | 2020-05-15 07:23 | NUR ---
Shift chart check completed.24 HR chart check completed.
--- NOTE | 2020-05-15 07:51 | NUR ---
Updated clinicals faxed to Yuko at [facility] for review. Will follow.
--- NOTE | 2020-05-15 08:16 | NUR ---
ON ASSESSMENT PATIENT ALERT, ABLE TO SAY SHE'S IN "[place]". SHE REQUESTED TO "GO INTO THE BATHROOM". ASSISTED WITH WALKER TO [facility] WHERE SHE HAD A VERY LARGE BM. 3 LARGE FORMED STOOLS. RIJ MLC INTACT. MATHIS PATENT YELLOW URINE. LEVOPHED HAS BEEN TITRATED FROM 6 MCG/MIN TO 5 MCG/MIN. WILL CONTINUE TO MONITOR. DR GODDARD'S CABLE SWAGER, LISE, HERE. INFORMED OF POSITIVE BOWEL MOVEMENT. 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 SHE HAS NOT HAD THIS SINCE ADMISSION TO [facility]. OUR PHARMACY DOES NOT CARRY THIS.
--- NOTE | 2020-05-15 11:00 | NUR ---
ALBERT ON [facility] NOTIFIED OF [facility] CONSULT.
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
--- NOTE | 2020-05-15 13:27 | NUR ---
PT COOPERATIVE WITH CARE. MEDICATIONS GIVEN AND OBSERVED THAT SHE COMPLETELY SWALLOWED THEM.
--- NOTE | 2020-05-15 14:25 | NUR ---
DR GODDARD HAS VISITED AND EXAMINED PATIENT.
--- NOTE | 2020-05-15 15:57 | NUR ---
PT STILL EXPRESSING PARANOID FEELINGS. "HAVE YOU GONE TO THE OTHER SIDE?" WHEN I ASKED WHAT SHE MEANT, SHE SAID "ARE YOU ON THEIR SIDE". EXPLANATIONS/REASSURANCES GIVEN. WILL CONTINUE TO MONITOR.
--- NOTE | 2020-05-15 17:22 | NUR ---
EATING BAKED POTATO AND MILKSHAKE. NO DIFFICULTY SWALLOWING NOTED.
--- NOTE | 2020-05-15 18:54 | NUR ---
UP TO [facility] TO PASS FLATUS ONLY. ATE ABOUT 1/2 OF BAKED POTATO AND MILKSHAKE.
--- NOTE | 2020-05-15 20:00 | NUR ---
Patient lying in bed, denies any ab discomfort at this time. Does express paranoia, stated she thought someone was trying to talk the other rn into killing her, when I ask who was telling her that, she stated the others out there. I assured her no one was here to hurt her or conspire with others to hurt her. Patient adjusted in bed, given some ice cream, in which she tolerated well. Left patient with call light in reach and in view of staff.
--- NOTE | 2020-05-15 21:16 | NUR ---
Patient having paranoid thoughts, yelling out at times. Tying to get out of bed, states her mother is calling and she needs to go. Accused staff of taking clothes and putting them in a truck. Refusing to let us bath her. Patient given restoril to help rest. Will monitor and reassess.
[2020-05-16 00:01] VITALS: BP 130/64
--- NOTE | 2020-05-16 00:36 | NUR ---
24 HR chart check completed.
--- NOTE | 2020-05-16 01:07 | NUR ---
Patient yelling out for her mother, states we are trying to keep her here and her belongings. Trying to get out of bed to find her mother. Dr. Frausto in unit at this time, new order received for ativan. Was given, awaiting effects.
--- NOTE | 2020-05-16 01:34 | NUR ---
Patient still yelling out for her mom and trying to get out of bed. Trying to reorient patient, but she insists that she is at my home and not the hospital. Patient states we will not keep her here. Patient not understanding any time or place. Ativan not effective at this time.
--- NOTE | 2020-05-16 02:35 | NUR ---
Patient again trying to get out of bed to leave and talk to her mom. Patient states she not staying in the bed and going to find the truck that has her ring and new watch. New order received for oleg. Was given im. Will monitor and reassess.
[2020-05-16 04:00] VITALS: BP 112/60
--- NOTE | 2020-05-16 04:00 | NUR ---
Veronica effective for about an hour. Patient up now, trying to get out of bed, still yelling for her mother.
--- NOTE | 2020-05-16 05:30 | NUR ---
Patient no longer yelling out, but continues to talk with someone in the room. Patient no longer trying to get out of bed. Cooperative w/care at this time, still disoriented. Up reading the menu and patient states she called her order to her mom on the phone.
[2020-05-16 06:21] LABS: ALBUMIN 2.3 gm/dl (3.1-4.5); ALKALINE PHOSPHATASE 172 U/L (45-117); BUN 12 mg/dl (7-24); CHLORIDE 119 mmol/L (98-107); CREATININE 0.69 mg/dL (0.55-1.02); POTASSIUM 3.5 mmol/L (3.5-5.1); SGOT/AST 118 IU/L (3-35); SGPT/ALT 399 U/L (12-78); SODIUM 145 mmol/L (136-145); TOTAL PROTEIN 5.3 gm/dL (6.4-8.2)
[2020-05-16 06:47] LABS: BASO % 0.2 % (0.0-1.0); EOS # 0.2 10*3/uL (0.0-0.4); EOS % 1.2 % (1.0-4.0); HEMATOCRIT 29.4 % (37.0-47.0); LYMPH % 6.8 % (27.0-41.0); MEAN CELL VOLUME 93.3 fl (81.0-99.0); MEAN CORPUSCULAR HGB 29.8 pg (27.0-31.0); MEAN PLATELET VOLUME 12.3 fl (9.6-12.3); MONO # 0.5 10*3/uL (0.1-1.0); MONO % 3.3 % (3.0-9.0); NEUT # 13.5 10*3/uL (2.3-7.9); PLATELET COUNT AUTOMATED 77 10*3/uL (130-400); RED BLOOD COUNT 3.15 10*6/uL (4.10-5.10); RED CELL DISTRI WIDTH 14.6 % (0-14.5); WHITE BLOOD COUNT 15.4 10*3/uL (4.8-10.8)
--- NOTE | 2020-05-16 07:45 | NUR ---
RESTING COMFORTABLY IN BED. ALERT AND ORIENTED TIMES THREE. WHEN ASKED IF SHE WANTS BREAKFAST, SHE STATES " I ALREADY TOLD THAT MACK ON THE COUCH WHAT I WANTED TO EAT." REORIENTED THAT NO MACK HAS BEEN IN ROOM.
[2020-05-16 08:00] VITALS: BP 116/63
--- NOTE | 2020-05-16 09:30 | NUR ---
Celeste Burnette here to see patient on consult.
--- NOTE | 2020-05-16 11:00 | NUR ---
Bathed. Remains up in chair. Bear removed per order
[2020-05-16 12:00] VITALS: BP 132/65
--- NOTE | 2020-05-16 12:54 | NUR ---
PATIENT STATES "GO TELL MY MOTHER TO COME IN HERE PLEASE." REMINDED THAT MOTHER IS NOT HERE IN HOSPITAL
--- NOTE | 2020-05-16 14:52 | NUR ---
SPEECH THERAPY Patient referred for bedside swallowing evaluation due to concerns for difficulty swallowing and aspiration PNA. Medical diagnoses include manic-depression, schizophrenia, and Brimley's Disease. She additionally has increased WBC count. Patient was previously on BHU, however was transferred to ICU 05/13 due to low blood pressure. Per nursing staff, patient is a "very slow eater" and has not eaten or drank much since admission to the unit. According to patient's daughter who spoke with nursing staff, patient "always had a hard time swallowing." Patient interviewed prior to evaluation. She is edentulous, and reported she prefers softer food items. She stated she choked two times previoulsy and required the heimlich maneuver. Patient is edentulous, which she reports is custodial status. Patient was pleasant during assessment, however confusion was noted, and she likely is a poor historian. Patient was oriented to self, but not place. She called out for her mother on occassion, and described others in the room with various episodes of apparent confusion observed. She was able to be re-directed and participated well during evaluation. Oral [facility] exam revealed mildly reduced lingual strength. Lingual ROM and coordination and labial strength, ROM, and coordination were WFL. She displayed functional volitional swallow and strong volitional cough. Patient was assessed with soft diet and thin liquids. She displayed tolerance of ice chip, sips of thin liquid via straw, and bites of jello which melt to thin liquid consistency. Patient independently utliized gelacio sips of liquid. She demonstrated no overt s/s of penetration/aspiration. She took two small bites of grilled cheese sandwich. Patient displayed mild-moderate increase in masticaion time, but was able to clear oral cavity without resides, and no overt s/s of penetration/aspiration observed. Discussed improving oral intake and choosing items which she is more likely to eat. Patient is recommended mechanical soft diet with thin liquids. Safe and compensatory swallowing strategies were reviewed and recommended to patient which include taking small bites and sips, alternating between solids and liquids, selecting softer food options, moistening food when able, checking oral cavity for residue following meal, and remaining seated upright during meal and for 30 minutes following PO intake. Results and recommendations shared with patient and medical staff who reported understanding. Recommend 1 time follow up at a meal to ensure safety and tolerance of recommended diet throughout a meal while adhering to safe and compensatory swallowing strategies and encouraging improved intake. Thank you for your consultation. Sushma Anderson MA [facility]A ROOM MANAGER
[2020-05-16 16:00] VITALS: BP 132/72
--- NOTE | 2020-05-16 16:28 | NUR ---
Trying to get out of bed. Whispering. Asking "Do you want me to try and leave with that man?" Reoriented to place and time.
--- NOTE | 2020-05-16 17:35 | NUR ---
OUT OF BED, YELLING OTTONIEL, THINKS OTTONIEL IS IN PARKING LOT OF HOSPITAL. HEARS HER MOMS VOICE. REORIENTED. MEDICATED WITH ATIVAN 1MG IV FOR RESTLESSNESS AND AGITATION. PLACED BACK TO CHAIR AND IS EATING DINNER.
--- NOTE | 2020-05-16 18:00 | NUR ---
ATIVAN SOMEWHAT EFFECTIVE.
[2020-05-16 20:00] VITALS: BP 127/69
--- NOTE | 2020-05-16 22:00 | NUR ---
Patient becoming agitated, yelling out for mom and talking about a cindy hurting a cat. New order received for haldol. Patient given haldol @ 22:44, and put back in bed after climbing over railing to look out the door. Will monitor.
--- NOTE | 2020-05-16 23:31 | NUR ---
Patient has not tried to get out of bed, does still talk to nobody that is in the room, no yelling out at this time. Patient calm. Haldol slightly effective.
[2020-05-17] VITALS: BP 136/70
--- NOTE | 2020-05-17 01:20 | NUR ---
Patient has still not slept. Up in bed, pulling at blankets and talking to people not here.
--- NOTE | 2020-05-17 02:13 | NUR ---
Patient is finally resting.
--- NOTE | 2020-05-17 03:36 | NUR ---
Patient awake, slept for less than an hour. Awoke taking about getting dressed to leave and trying to get up out of bed. Patient adjusted back in bed, explained to her it was only 330 and she hasnt sleep, most of the night.
[2020-05-17 04:01] VITALS: BP 143/76
--- NOTE | 2020-05-17 05:17 | NUR ---
Patient very weepy this am, crying about someone named Figueroa. Patient also asked if she would be going back to the [facility].
[2020-05-17 05:28] LABS: ALBUMIN 2.4 gm/dl (3.1-4.5); ALKALINE PHOSPHATASE 157 U/L (45-117); BUN 9 mg/dl (7-24); CHLORIDE 115 mmol/L (98-107); CREATININE 0.66 mg/dL (0.55-1.02); POTASSIUM 3.4 mmol/L (3.5-5.1); SGOT/AST 48 IU/L (3-35); SGPT/ALT 288 U/L (12-78); SODIUM 145 mmol/L (136-145); TOTAL PROTEIN 5.5 gm/dL (6.4-8.2)
[2020-05-17 05:54] LABS: BASO % 0.3 % (0.0-1.0); EOS # 0.3 10*3/uL (0.0-0.4); EOS % 2.7 % (1.0-4.0); HEMATOCRIT 28.4 % (37.0-47.0); LYMPH # 1.4 10*3/uL (1.3-4.4); LYMPH % 14.5 % (27.0-41.0); MEAN CELL VOLUME 93.4 fl (81.0-99.0); MEAN CORPUSCULAR HGB 29.9 pg (27.0-31.0); MEAN PLATELET VOLUME 11.8 fl (9.6-12.3); MONO # 0.6 10*3/uL (0.1-1.0); MONO % 5.8 % (3.0-9.0); NEUT # 7.4 10*3/uL (2.3-7.9); NEUT % 76.1 % (47.0-73.0); PLATELET COUNT AUTOMATED 76 10*3/uL (130-400); RED BLOOD COUNT 3.04 10*6/uL (4.10-5.10); RED CELL DISTRI WIDTH 14.5 % (0-14.5); WHITE BLOOD COUNT 9.7 10*3/uL (4.8-10.8)
--- NOTE | 2020-05-17 07:15 | NUR ---
Shift chart check completed.24 HR chart check completed.
[2020-05-17 08:00] VITALS: BP 130/60
--- NOTE | 2020-05-17 08:01 | NUR ---
ON ASSESSMENT PATIENT IS ALERT, ORIENTED TO HERSELF AND THAT SHE'S IN "A HOSPITAL". SHE STILL TALKS TO SOMEONE WHEN NO ONE IS IN THE ROOM. EXPRESSES SOME PARANOID FEELINGS, BUT COOPERATIVE. GOT HER MORNING MEDS INTO HER WHILE COOPERATIVE. ATTEMPT TO REORIENT HER TO PLACE AND WHY SHE'S HERE. MLC INTACT RIJ. OLD HEP LOCK REMOVED FROM LEFT ARM. PT UP TO BSC TO VOID. UP TO CHAIR. BREAKFAST ORDERED. PREVIOUSLY MISPLACED "CHEATER" GLASSES LOCATED IN HER GOWN POCKET. BILATERAL LOWER LEG SWELLING WITH SOME REDNESS. SEE ALL APPROPRIATE INTERVENTIONS.
--- NOTE | 2020-05-17 09:15 | NUR ---
PT ON BSC. FOUND HER WITH HER ATTEMPTING TO GET HER FINGERS INTO HER RECTUM. HER ANUS WAS ENLARGED WITH A HARD FORMED STOOL. HAND HYGIENE FOR PATIENT AND I HELPED HER TO PASS THIS STOOL. ASSISTED PT TO COMFORTABLE POSITION IN BED. SHE SAID "I HAVEN'T SLEPT FOR A COUPLE NIGHTS". ROOM DARKENED.
--- NOTE | 2020-05-17 10:04 | NUR ---
SAM FERRARO AND RUPESH HAVE BOTH VISITED. PT IS SLEEPING SOUNDLY. REVIEW OF VITAL SIGNS AND LABS AND CONSTIPATION WITH THEM BOTH. ORDERS HAVE BEEN ENTERED.
--- NOTE | 2020-05-17 11:15 | NUR ---
UP TO BSC. HAD ONE LARGE STOOL- 4INCHES X 2 INCHES. HER FIRST DOSES OF COLACE AND MIRALAX HAVE BEEN GIVEN.
[2020-05-17 12:45] VITALS: BP 133/76
--- NOTE | 2020-05-17 13:22 | NUR ---
UP IN CHAIR FOR LUNCH. TEARFUL.
--- NOTE | 2020-05-17 13:38 | NUR ---
STILL TEARFUL...."NURSE, CAN I SEE THE DOG?". REASSURANCES AND REALITY TO PT.
[2020-05-17 16:00] VITALS: BP 124/70
--- NOTE | 2020-05-17 18:03 | NUR ---
UP TO CHAIR FOR DINNER. TEARFUL.
[2020-05-17 20:00] VITALS: BP 133/74
--- NOTE | 2020-05-17 20:14 | NUR ---
CHART CHECK WAS COMPLETED. MONITOR STRIP PLACED ON CHART.
--- NOTE | 2020-05-17 21:00 | NUR ---
PATIENT ALERT AND ORIENT, COOPERATIVE AND FOLLOWING DIRECTIONS. YELLS OUT AND TALKS TO PEOPLE WHO ARE NOT PRESENT. STATED A SAMPLE OF HER HAIR WAS TAKEN FOR A DNA SAMPLE. REQUESTED FOR A LIGHT TO BE LEFT ON FOR WHEN HER MOTHER CAMES. AUDIBLE HALLUCINATIONS.
[2020-05-18] VITALS: BP 131/74
--- NOTE | 2020-05-18 00:46 | NUR ---
PATIENT HAVING AUDIBLE AND VISUAL HALLUCINATIONS. PATIENT AGITATED AND DETERMINED THAT SHE HEARD PEOPLE TALKING AND SEEN PEOPLE.
--- NOTE | 2020-05-18 01:45 | NUR ---
PATIENT WAS ABLE TO FALL ASLEEP.
[2020-05-18 04:00] VITALS: BP 133/79
[2020-05-18 06:05] LABS: ALBUMIN 2.5 gm/dl (3.1-4.5); ALKALINE PHOSPHATASE 166 U/L (45-117); BUN 6 mg/dl (7-24); CHLORIDE 115 mmol/L (98-107); CREATININE 0.63 mg/dL (0.55-1.02); POTASSIUM 3.4 mmol/L (3.5-5.1); SGOT/AST 34 IU/L (3-35); SGPT/ALT 217 U/L (12-78); SODIUM 145 mmol/L (136-145); TOTAL PROTEIN 5.7 gm/dL (6.4-8.2)
[2020-05-18 06:19] LABS: HEMATOCRIT 29.6 % (37.0-47.0); MEAN CELL VOLUME 93.1 fl (81.0-99.0); MEAN CORPUSCULAR HGB 29.9 pg (27.0-31.0); MEAN CORPUSCULAR HGB CONC 32.1 g/dl (33.0-37.0); MEAN PLATELET VOLUME 12.3 fl (9.6-12.3); PLATELET COUNT AUTOMATED 98 10*3/uL (130-400); RED BLOOD COUNT 3.18 10*6/uL (4.10-5.10); RED CELL DISTRI WIDTH 14.5 % (0-14.5); WHITE BLOOD COUNT 7.7 10*3/uL (4.8-10.8)
--- NOTE | 2020-05-18 06:58 | NUR ---
Shift chart check completed.24 HR chart check completed.
[2020-05-18 07:25] LABS: BASOPHILS 1 % (0-1); PLATELET SUFFICIENCY LOW (NORMAL); TOTAL CELLS COUNTED 100 #CELLS
--- NOTE | 2020-05-18 07:54 | NUR ---
ON ASSESSMENT PATIENT IS AWAKE, ALERT, LOUDLY YELLING OUT, TALKING TO AND ABOUT PEOPLE WHO AREN'T PRESENT. NOT CRYING/TEARFUL TODAY. INSTEAD GIGGLING, WANTING TO HUG ME. SHE'S TALKING ABOUT DOGS. ASSISTED TO BSC THEN TO THE CHAIR FOR BREAKFAST. SHE SAID "GIVE ME THE BIGGEST DOWNER YOU'VE GOT, I'M REALLY MANICKY TODAY". I DID GET ALL OF HER MORNING MEDS INTO HER AT THIS TIME. ENCOURAGING HER TO EAT. PT CLAIMS "I'VE LOST ALL THAT WEIGHT AND I DON'T WANT TO GAIN IT BACK". ENCOURAGED TO EAT HEALTHY. MLC INTACT RIJ. ABDOMEN SOFT WITH NO C/O PAIN. SHE DID HAVE SMALL MUSHY LIGHT BROWN BM. BILATERAL LOWER LEG EDEMA CONTINUES. SEE ALL APPROPRIATE INTERVENTIONS.
[2020-05-18 08:00] VITALS: BP 146/80
--- NOTE | 2020-05-18 08:34 | NUR ---
PT WRITING NOTES, WANTING COPIES MADE TO GIVE TO HER FAMILY, WHOSE CAR SHE THINKS IS IN THE PARKING LOT. DIET TRAY IN FRONT OF HER WITH FREQUENT ENCOURAGEMENT TO EAT.
--- NOTE | 2020-05-18 08:37 | NUR ---
I DID PHONE MICROBIOLOGY TO ASK ABOUT IDENTIFICATION OF GPC ORGANISM FROM BLOOD CULTURES. PER MARQUEZ, TO NOT TO EXPECT ID UNTIL TOMORROW 05/19.
--- NOTE | 2020-05-18 09:07 | NUR ---
DR COUCH HAS VISITED AND TALKED WITH PT. PATIENT IS NOW WHISPERING HER CONVERSATIONS AND WANTS EVERYONE WHO TALKS TO HER TO BE WHISPERING ALSO. DR COUCH INFORMED THAT PT IS EATING VERY LITTLE, IN SPITE OF ENCOURAGEMENT.
[2020-05-18 12:00] VITALS: BP 138/80
--- NOTE | 2020-05-18 15:33 | NUR ---
PT HAS BEEN UP TO BSD FOR MUSHY YELLOW BM AND INCONTINENT ALSO. SHE CONTINUES TO YELL OUT TO FAMILY MEMBERS WHO AREN'T HERE. SHE HASN'T SLEPT ALL DAY. SHE'S BARELY EATEN ANYTHING. SHE IS ACTING IF THERE'S A PUPPY IN THE BED AND SHE'S TRYING TO COAX IT OUT TO EAT.
[2020-05-18 16:00] VITALS: BP 133/84
--- NOTE | 2020-05-18 16:17 | NUR ---
IN BED TALKING NON-STOP BUT DOESN'T WANT TO TALK TO ME. SHE SAID THAT I HAVE A "SWEET HEART BUT YOU'RE STUPID".
--- NOTE | 2020-05-18 16:54 | NUR ---
DR FELDER NOTIFIED THAT PT IS AGITATED, HASN'T SLEPT ENTIRE SHIFT.
--- NOTE | 2020-05-18 17:10 | NUR ---
PT YELLING OUT, AGITATED.
--- NOTE | 2020-05-18 17:26 | NUR ---
IV ATIVAN 2MG PER ORDER. PT WAS COMBATIVE TOWARD ME WHEN I ATTEMPTED TO GIVE IT.
--- NOTE | 2020-05-18 18:10 | NUR ---
HASN'T SLEPT, STILL CONTINUES TO HALLUCINATE AND YELL FOR PEOPLE WHO AREN'T HERE BUT NOT QUITE AGITATED BEFORE THE IV ATIVAN.
--- NOTE | 2020-05-18 18:56 | NUR ---
UP IN CHAIR.DINNER WITH POOR INTAKE. NOT YELLING OUT AGITATED AT THIS TIME.
--- NOTE | 2020-05-18 19:59 | NUR ---
PT SITTING UP ON SIDE OF BED. CONTINUOUS NONSTOP TALKING TO NO ONE IN ROOM. AUDIO AND VISUAL HALLUCINATIONS REMAIN. IN VIEW OF ICU STAFF.
[2020-05-18 20:00] VITALS: BP 152/92
--- NOTE | 2020-05-18 20:15 | NUR ---
PM MEDICATIONS GIVEN PER PT REQUEST. UP TO BSC TO VOID AND HAVE SMALL BM. TO BED WITH CALL LIGHT & BELONGINGS IN REACH. BED EXIT ALARM.
--- NOTE | 2020-05-18 20:41 | NUR ---
PT HAD APPEARED TO BE DOZING FOR APPROXIMATELY 15 MINUTES THEN CALLS OUT "NURSE, COME HERE." WAVING ME IN. STATES "I THINK THAT PUPPY IS SLEEPING ON MY FEET... CAN YOU CHECK TO SEE IF WE HAVE ANY FOOD FOR IT?"
--- NOTE | 2020-05-18 21:26 | NUR ---
PT CURLED UP ON HER RT SIDE, EYES CLOSED, RESPIRATIONS EVEN AND UNLABORED IN LOW 20'S AND HR 40'S-50'S.
--- NOTE | 2020-05-18 22:48 | NUR ---
PT UP, WALKING AROUND IN THE ROOM. SHE WAS "TRYING TO MOVE THE BED OUTTA HERE." REORIENTED PT TO SURROUNDINGS.
[2020-05-19] VITALS: BP 136/78
[2020-05-19 04:00] VITALS: BP 126/84
[2020-05-19 06:14] LABS: BUN 5 mg/dl (7-24); CHLORIDE 114 mmol/L (98-107); CREATININE 0.67 mg/dL (0.55-1.02); POTASSIUM 3.6 mmol/L (3.5-5.1); SODIUM 144 mmol/L (136-145)
[2020-05-19 06:31] LABS: MEAN CELL VOLUME 94.3 fl (81.0-99.0); MEAN CORPUSCULAR HGB 29.6 pg (27.0-31.0); MEAN CORPUSCULAR HGB CONC 31.3 g/dl (33.0-37.0); MEAN PLATELET VOLUME 11.9 fl (9.6-12.3); PLATELET COUNT AUTOMATED 107 10*3/uL (130-400); RED BLOOD COUNT 3.18 10*6/uL (4.10-5.10); RED CELL DISTRI WIDTH 14.5 % (0-14.5); WHITE BLOOD COUNT 9.1 10*3/uL (4.8-10.8)
--- NOTE | 2020-05-19 07:46 | NUR ---
Updated clinicals faxed to [facility]ye Sandoval for review. According to a report of consultation from Celeste Burnette on , patient should return to the U when medically stable for further treatment.
[2020-05-19 08:00] VITALS: BP 126/82
[2020-05-19 08:21] LABS: PLATELET SUFFICIENCY LOW (NORMAL); TOTAL CELLS COUNTED 100 #CELLS
--- NOTE | 2020-05-19 08:48 | NUR ---
SPEECH PATHOLOGY Patient was seen for treatment this am during breakfast meal. Patient was alert but confused, tearful and hallucinating throughout the encounter. Assistance was provided by clinician at start of meal for cutting up food and placing items within reach, then patient was able to feed herself. She ate slowly and took small bites of food. Good intake of meal was noted although patient stated that she was not hungry and has not had much appetite. Patient displayed no overt swallowing difficulty throughout meal. Recommend she remain on soft diet and thin liquids and monitored during meals to ensure use of safe swallow precautions such as small bites/sips, eating slowly, alternating liquid and solid, checking oral cavity to ensure there is no residue and remaining upright at least 30 minutes after meals. Recommend discharge from dysphagia therapy at this time. Thank you for this referral. It has been a pleasure taking part in this patient's care. ROSARIO PATTERSON MSCCC-GUARDIAN FAMILY MEMBER
--- NOTE | 2020-05-19 11:00 | NUR ---
PT ASSISTED OUT OF BED IN TO RECLINER CHAIR.
[2020-05-19 12:00] VITALS: BP 141/78
[2020-05-19] MEDS ORDERED: CLONAZEPAM0.5 M2 PO (13:15)
[2020-05-19] MEDS ORDERED: AUGMENTIN 875-875 MG PO (13:15)
[2020-05-19] MEDS ORDERED: NAMENDA-5 PO (13:15)
--- NOTE | 2020-05-19 14:25 | NUR ---
REPORT GIVEN TO NURSE ON BHU AND PT TRANSFERED THERE BY WHEELCHAIR AT THIS TIME.
[2020-05-19] MEDS ORDERED: DULCOLAX5 M1 PO (16:13)
[2020-05-19] MEDS ORDERED: MIRALAX17 GM PO (16:15)
[2020-05-19] MEDS ORDERED: RISPERIDONE M-TA1 MG PO (16:16)
[2020-05-19] MEDS ORDERED: NYSTATIN1 EAC6 MC (16:17)
[2020-05-19] MEDS ORDERED: FLEET ENEMA 13133 ML R (17:06)
== END 2020-05-19 14:25 | disposition home health service (06) | DRG 871 ==
LOC: ICCU 17:45
PROVIDERS: Family Medicine; Internal Medicine; Internal Medicine Critical Care Medicine; ADMIT Internal Medicine; ATTEND Internal Medicine
PROC: B548ZZA Ultrasonography of Superior Vena Cava, Guidance (ICD-10-PCS; principal; 2020-05-13)
PROC: 02HV33Z Insertion of Infusion Device into Superior Vena Cava, Percutaneous Approach (ICD-10-PCS; principal; 2020-05-13)
DX: A41.9 Sepsis, unspecified organism (principal); R65.21 Severe sepsis with septic shock; G93.41 Metabolic encephalopathy; E43 Unspecified severe protein-calorie malnutrition; J69.0 Pneumonitis due to inhalation of food and vomit; N17.0 Acute kidney failure with tubular necrosis; G10 Huntington's disease; K35.80 Unspecified acute appendicitis; D69.6 Thrombocytopenia, unspecified; F31.9 Bipolar disorder, unspecified; J45.909 Unspecified asthma, uncomplicated; K21.9 Gastro-esophageal reflux disease without esophagitis; H40.9 Unspecified glaucoma; E78.5 Hyperlipidemia, unspecified; F20.9 Schizophrenia, unspecified; D64.9 Anemia, unspecified; I10 Essential (primary) hypertension; D72.829 Elevated white blood cell count, unspecified; R73.9 Hyperglycemia, unspecified; E83.39 Other disorders of phosphorus metabolism; R74.0 Nonspecific elevation of levels of transaminase and lactic acid dehydrogenase [LDH]; E87.8 Other disorders of electrolyte and fluid balance, not elsewhere classified; K59.00 Constipation, unspecified; Z88.5 Allergy status to narcotic agent; Z88.7 Allergy status to serum and vaccine; Z88.8 Allergy status to other drugs, medicaments and biological substances; Z91.041 Radiographic dye allergy status; Z86.73 Personal history of transient ischemic attack (TIA), and cerebral infarction without residual deficits; Z68.29 Body mass index [BMI] 29.0-29.9, adult

== ENCOUNTER 2020-05-19 14:13 | Inpatient (IN) | payer OTHER ==
[~2020-05-19] VITALS: Ht 167.6 cm; Wt 81.6 kg
[~2020-05-19 14:13] MED LIST changes: +AUGMENTIN 875-875 MG PO; +CLONAZEPAM0.5 M2 PO; +ZINC-220220 MG PO
[2020-05-19 14:54] VITALS: BP 140/76
--- NOTE | 2020-05-19 15:12 | NUR ---
Please refer to psychosocial assessment of pt completed on 05/06/20.
[2020-05-19 15:28] VITALS: BP 140/76
[2020-05-19] MEDS ORDERED: DULCOLAX5 M1 PO (16:13)
[2020-05-19] MEDS ORDERED: MIRALAX17 GM PO (16:15)
[2020-05-19] MEDS ORDERED: RISPERIDONE M-TA1 MG PO (16:16)
[2020-05-19] MEDS ORDERED: NYSTATIN1 EAC6 MC (16:17)
--- NOTE | 2020-05-19 16:39 | NUR ---
OSVALDO RUSH Darius a 70 year old F admitted via wheel chair from the ADMITTING as a voluntary admission. Arrived on unit at 1427. ALLERGIES: CODEINE, IODINE, FUROSEMIDE, AND ZIPRASIDONE. Vital signs are: [id number] 140/76. The guardian gave verbal consent for the following forms with stated understanding: Authorization For The Release of Medical Information, Clothing List, Consent to Voluntary Admission and Hospitalization, Consent and Release Forms/Receipt of Rights, Acknowledgement of Advance Directive Information, Behavioral Health Consent Form, and Informed Consent of Medications. Admitted under the services of Dr. PHONG LOCKHARTWINSOME. A search was conducted and hazardous articles were removed. Client was oriented to the unit. ANDREW RILEY
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
[2020-05-19] MEDS ORDERED: FLEET ENEMA 13133 ML R (17:06)
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
[2020-05-19 19:08] VITALS: BP 148/71
[2020-05-19 20:00] VITALS: BP 148/74
--- NOTE | 2020-05-19 21:08 | NUR ---
DR IWLKES ON UNIT TO SEE PATIENT
--- NOTE | 2020-05-20 01:57 | NUR ---
P-ISOLATIVE, DEMANDING I-REDIRECTION WITH 1:1 THERAPEUTIC INTERVENTIONS AND PRESENT REALITY. EDUCATE AND ENCOURAGE MEDICATION COMPLIANCE R-PATIENT MEDICATION COMPLIANT AT HS. PATIENT REFUSED NOURISHMENT BUT PROVIDED FLUIDS AT HS. PATIENT ISOLATIVE IN ROOM THIS SHIFT. PATIENT DEMANDING OF NURSING STAFF THIS SHIFT. PATIENT WITH ASSISTANCE X 1 TO GO TO BATHROOM THIS SHIFT. PATIENT UNSTEADY WITH AMBULATION. PATIENT CONTINUES ON AUGMENTIN WITH NO ADVERSE REACTION. PAITENT WITH NO COUGH THIS SHIFT. PATIENT WITH NO HALLUCINATIONS OR DELUSIONS. PATIENT WITH NO HOMICIDAL OR SUICIDAL IDEATIONS. P-CONTINUE TO ENCOURAGE MEDICATION COMPLIANCE, CONTINUE TO PRESENT REALITY, ENCOURAGE GROUP THERAPY WHILE AWAKE
--- NOTE | 2020-05-20 06:48 | NUR ---
PATIENT SLEPT 4 HOURS INTERRUPTED SLEEP THROUGHOUT SHIFT. Q 15 MINUTE CHECKS MAINTAINED. 24 HR chart check completed.
[2020-05-20 07:09] LABS: HEMATOCRIT 30.6 % (37.0-47.0); MEAN CELL VOLUME 94.2 fl (81.0-99.0); MEAN CORPUSCULAR HGB 29.5 pg (27.0-31.0); MEAN CORPUSCULAR HGB CONC 31.4 g/dl (33.0-37.0); MEAN PLATELET VOLUME 11.5 fl (9.6-12.3); PLATELET COUNT AUTOMATED 128 10*3/uL (130-400); RED BLOOD COUNT 3.25 10*6/uL (4.10-5.10); RED CELL DISTRI WIDTH 14.6 % (0-14.5); WHITE BLOOD COUNT 6.6 10*3/uL (4.8-10.8)
[2020-05-20 07:28] LABS: CHLORIDE 112 mmol/L (98-107); POTASSIUM 3.7 mmol/L (3.5-5.1); SODIUM 143 mmol/L (136-145)
[2020-05-20 07:32] VITALS: BP 144/77
--- NOTE | 2020-05-20 07:33 | NUR ---
PHYSICAL THERAPY Screen and PT eval received will follow thank you Rosalie Patton PT
--- NOTE | 2020-05-20 07:38 | NUR ---
Nursing screen received and chart reviewed. Patient admitted on 05/06/2020 to the [facility] for schizoaffective disorder. Patient was then transferred to the [facility] for hypotension and aspiration PNA. Patient re-admitted to the [facility] on 05/19/2020. If patient has a decline in ADLs, transfers, or functional mobility, please send OT orders. Thank you. Haylee Ruiz, OTR/L
[2020-05-20 07:45] LABS: ALBUMIN 2.5 gm/dl (3.1-4.5); ALKALINE PHOSPHATASE 127 U/L (45-117); BUN 5 mg/dl (7-24); CHOLESTEROL 148 mg/dL (<200); CREATININE 0.62 mg/dL (0.55-1.02); HDL CHOLESTEROL 34 mg/dl (40-60); LDL CHOLESTEROL 91 mg/dL (9-159); SGOT/AST 13 IU/L (3-35); SGPT/ALT 108 U/L (12-78); TOTAL PROTEIN 5.8 gm/dL (6.4-8.2); TRIGLYCERIDES 116 mg/dl (<150); VLDL CHOLESTEROL 23 mg/dL (6-40)
[2020-05-20 07:58] LABS: PLATELET SUFFICIENCY LOW (NORMAL); TOTAL CELLS COUNTED 100 #CELLS
--- NOTE | 2020-05-20 07:58 | NUR ---
Notified [facility] of date and time patient returned to [facility] [place]; Faxed clinical updates for review.
[2020-05-20 08:27] LABS: VITAMIN D, 25-HYDROXY 48.4 ng/mL (30-100)
--- NOTE | 2020-05-20 10:41 | NUR ---
Treatment team held this AM with Celeste Burnette NP, RN, pharmacy care coordinator, environmental emergencies planner, and DOMINIQUE. Pt will return to [facility] when discharged either on 05/23 or early next week.
--- NOTE | 2020-05-20 10:43 | NUR ---
Treatment team meeting held this AM with Celeste Burnette STREET PHOTOGRAPHER, RN, development coordinator, DOMINIQUE and mission planner. This patient is halfway care at [facility] and at this time the plan is for her to return there. Spoke with Yuko today and faxed updates, notified of patients move back to [facility]
--- NOTE | 2020-05-20 11:47 | NUR ---
AM GROUP PT DID NOT ATTEND MORNING GROUP THERAPY. PT WAS IN BED RESTING.
--- NOTE | 2020-05-20 13:19 | NUR ---
Faxed admission clinical to [facility]. Awaiting response.
--- NOTE | 2020-05-20 15:46 | NUR ---
PM GROUP PT DID NOT ATTEND AFTERNOON GROUP THERAPY. PT WAS RESTING IN BED.
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
[2020-05-20 20:00] VITALS: BP 129/61
--- NOTE | 2020-05-20 23:50 | NUR ---
P-ISOLATIVE, DEMANDING I-REDIRECTION WITH 1:1 THERAPEUTIC INTERVENTIONS AND PRESENT REALITY. EDUCATE AND ENCOURAGE MEDICATION COMPLIANCE R-PATIENT MEDICATION COMPLIANT AT HS. PATIENT REFUSED NOURISHMENT BUT PROVIDED FLUIDS AT HS. PATIENT ISOLATIVE IN ROOM THIS SHIFT. PATIENT DEMANDING OF NURSING STAFF THIS SHIFT. PATIENT STATING "GO OVER THERE AND GET THOSE TOWELS OFF THE FLOOR AND NO ONE HAS BEEN IN HERE TO CLEAN MY ROOM. PATIENT WITH ASSISTANCE X 1 TO GO TO BATHROOM THIS SHIFT. PATIENT UNSTEADY WITH AMBULATION. PATIENT CONTINUES ON AUGMENTIN WITH NO ADVERSE REACTION. PATIENT WITH NO COUGH THIS SHIFT. BILATERAL HEEL PROTECTORS NOT ON THIS SHIFT DUE TO NOT BEING IN STOCK. HALLUCINATIONS OR DELUSIONS. PATIENT WITH NO HOMICIDAL OR SUICIDAL IDEATIONS. P-CONTINUE TO ENCOURAGE MEDICATION COMPLIANCE, CONTINUE TO PRESENT REALITY, ENCOURAGE GROUP THERAPY WHILE AWAKE
--- NOTE | 2020-05-21 06:23 | NUR ---
PATIENT SLEPT 9 HOURS OF INTERRUPTED SLEEP THROUGHOUT SHIFT. Q 15 MINUTE CHECKS MAINTAINED. 24 HR chart check completed.
[2020-05-21 07:34] VITALS: BP 148/70
--- NOTE | 2020-05-21 08:30 | NUR ---
DR ON FLOOR TO ASSESS PATIENT, UPDATE GIVEN.
--- NOTE | 2020-05-21 11:31 | NUR ---
IP 5 days ricardo per [facility] at [facility], LCD 05/22, NRD 05/23. Ref # [id number]
--- NOTE | 2020-05-21 13:55 | NUR ---
P: PATIENT IS ISOLATIVE, WITHDRAWN AND DEMANDING. I: ONE ON ONE FOR EMOTIONAL SUPPORT. PRESENT REALITY TO PATIENT. EDUCATE AND ENCOURAGE MEDICATION COMPLIANCE. R: MEDICATION COMPLIANT WITH EDUCATION. INTAKES ARE GOOD WITH ADEQUATE FLUIDS. 1 ASSIST WITH ACTIVITIES OF DAILY LIVING. UNSTEADY GAIT, PATIENT SELF PROPELS IN WHEELCHAIR. PATIENT IS ISOLATIVE AND WITHDRAWN AND DEMANDING TOWARDS STAFF. PERSON IS ALERT AND ORIENTED TO PERSON, PLACE, AND TIME. PATIENT IS UNSURE OF WHY SHE IS HERE. MOOD IS STABLE. PATIENT DENIES ANY SADNESS OR DEPRESSION. PATIENT IS CONFUSED AT TIMES. PATIENT DID STATE THAT SHE "FEELS BETTER THAN YESTERDAY". PATIENT DENIES ANY SUICIDAL IDEATION, ALSO DENIES HOMICIDAL IDEATION. PATIENT WAS INTERACTIVE AND PARTICIPATIVE DURING ASSESSMENT. PATIENT DID NOT ATTEND GROUP SESSION. P: CONITNUE TO PROVIDE ONE ON ONE FOR EMOTIONAL SUPPORT, PRESENT REALITY, AND ENCOURAGE GROUP SESSION ATTENDANCE. MONITOR FOR HALLUCINATIONS AND DELUSIONS.
--- NOTE | 2020-05-21 14:10 | NUR ---
Treatment plan meeting held this AM with Celeste Avila RETAIL EVENT ASSISTANT, RN, acitivities coordinator, DOMINIQUE and operations planner. Patient comes from [facility]. She will return when stable. Tentative discharge next week.
[2020-05-21 19:32] VITALS: BP 133/67
--- NOTE | 2020-05-21 21:40 | NUR ---
RESTING QUIET IN BED AT [facility]. DECLINED SNACK. STATES SHE SLEPT ALL DAY AND IS TRYING TO CATCH UP BECAUSE SHE HASN'T SLEPT IN DAYS. STATES TODAY WAS QUIET AND WAS A BETTER DAY THAN YESTERDAY. ENCOURAGED CLIENT TO INTERACT WITH PEERS AND STAFF TOMORROW. WILL MONITOR FOR CHANGES IN MOOD/BEHAVIOR AND Q 15 MINS AND PRN FOR SAFETY
--- NOTE | 2020-05-22 00:48 | NUR ---
24 HR chart check completed.
--- NOTE | 2020-05-22 06:30 | NUR ---
SLEPT WELL PAST 2215PM WITH A FEW AWAKENINGS TO VOID. NO PROBLEMS DURING SHIFT
[2020-05-22 08:00] VITALS: BP 130/75
--- NOTE | 2020-05-22 08:57 | NUR ---
DR FERRARO ON UNIT TO ASSESS PATIENT, UPDATE PROVIDED.
--- NOTE | 2020-05-22 09:05 | NUR ---
PHYSICAL THERAPY Physical Therapy evaluation completed on U with full evaluation to follow. Recommend physical therapy per plan of care and Snf vs Return to facility with follow up PT/OT upon discharge. Thank you for this referral. Ching Patton PT
--- NOTE | 2020-05-22 10:57 | NUR ---
Treatment team meeting held this AM with Dr. Stern, RN, clinical trials data coordinator, medical residents, DOMINIQUE and shutdown planner. this patient just recently returned to [facility] from the medical floor. She is originally from [facility] and is ok to return to [facility] when stable. Her tentative discharge date is next week.
--- NOTE | 2020-05-22 11:21 | NUR ---
P: VOICED STATEMENTS OF FEELING "DEPRESSED" AND WITHDRAWN AT TIMES. I: ONE ON ONE FOR EMOTIONALS SUPPORT AND ENCOURAGE GROUP ACTIVITIES. PATIENT TOLERATED PHYSICAL THERAPY. COMPLAINED OF FEELING LIGHT HEADED. OTHO BP CHECKED. LAYING 111/54, SITTING 112/57 AND STANDING 118/60. PATIENT RESTING IN BED AT THIS TIME. R: ONE ON ONE EFFECTIVE. PATIENT IS ALERT AND ORIENT TO PERSON, PLACE, TIME AND SITUATION; ABLE TO VOICE NEEDS. MOOD IS DEPRESSED. DENIES HALLUCINATIONS, DELUSIONS, HI/SI OR PAIN. NO RESPONSE TO INTERNAL STIMULI OBSERVED. MEDICATION COMPLAINT WITH EDUCATION PROVIDED. Q 15 MINUTE SAFETY CHECKS MAINTAINED. ONE PERSON ASSIST WITH ACTIVITIES OF DAILY LIVING, CONTINENT OF BOWEL AND BLADDER. SET UP FOR MEALS, INTAKES ARE GOOD WITH ADEQUATE FLUIDS. P: CONTINUE TO MONITOR FOR HALLUCINATIONS, DELUSIONS AND BECOMING PARANIOD OF STAFF. CONTINUE TO PROVIDE ONE ON ONE FOR EMOTIIONAL SUPPORT, REORIENT TO REALITY, ENCOURAGE SOCIAL INTERACTIONS WITH STAFF AND OTHER AND TO PARTICIPATE IN GROUP SESSIONS.
--- NOTE | 2020-05-22 12:06 | NUR ---
AM GROUP NO AM GROUP DUE TO 1:1 WITH PT
--- NOTE | 2020-05-22 15:53 | NUR ---
PM GROUP PT DID NOT ATTEND AFTERNOON GROUP THERAPY. PT WAS IN BED RESTING.
[2020-05-22 19:33] VITALS: BP 135/62
--- NOTE | 2020-05-22 19:44 | NUR ---
24 HR chart check completed.
--- NOTE | 2020-05-23 06:31 | NUR ---
SLEPT PAST 2230PM WITH AWAKENING TO VOID AND GET AM MEDICATION
[2020-05-23 07:50] VITALS: BP 124/67
--- NOTE | 2020-05-23 08:20 | NUR ---
PHYSICAL THERAPY Patient seen this am for therapy visit and was sitting in w/c at table following breakfast upon therapist arrival. Patient identified by name / and was very pleasant pleasant, soft spoken this morning. MHW was present for observation this session as patient performed seated B LE therex, all planes, 2 x 10 reps each to increase LE strength. Patient reports chronic L knee soreness and was able to complete several sit to stand transfers at [facility], MIN A x 1, tolerating appprox 1 minute static stand each trial. Patient returned to her w/c and remained at table in activity room under [facility] staff Supervision. Patient tolerated all treatment reporting no new c/o's and will continue per POC as tolerated. Total treatment time 17 minutes. Nader Pham, DIRECTOR STRATEGIC ACCOUNT MANAGEMENT
--- NOTE | 2020-05-23 08:43 | NUR ---
DR. FERRARO ON UNIT TO ASSESS PT.
--- NOTE | 2020-05-23 10:50 | NUR ---
Treatment team meeting held this AM with Celeste Burnette, biomedical manager, RN, operations coordinator, NATAN-S and landscape architect and planner. Faxed clinical updates and all notes to [facility] and contacted [facility] Juárez. Confirmed with her that patient is still ok to return to them and notified her of a tentative discharge date of Tuesday or Tuesday.
--- NOTE | 2020-05-23 10:57 | NUR ---
Faxed continued review stay clinical to [facility]. Awaiting response.
--- NOTE | 2020-05-23 14:48 | NUR ---
Pt was pleasant with this comic writer this AM during interaction. Pt did not voice any paranoid delusions during interaction.
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
--- NOTE | 2020-05-23 16:25 | NUR ---
P-ISOLATIVE. DEPRESSED MOOD "A LITTLE BIT, I JUST AM." I-ENCOURAGED TO ATTEND GROUP ACTIVITIES. PROVIDED 1:1 EMOTIONAL SUPPORT. ASSESSED FOR S/S HALLUCINATIONS, PARANOIA AND/OR DELUSION, HI/SI. R-PT ATTENDED GROUP ACTIVITIES. ALERT AND ORIENTED TO PERSON, PLACE, AND TIME. DENIED AUDITORY, VISIUAL HALLUCINATIONS/DELUSIONS, HI/SI OR PAIN. MEDICATION COMPLIANT WITH EDUCATION PROVIDED. SET-UP WITH ADLS, SELF PROPELS W/C. Q 15 MINUTE CHECKS. P-CONTINUE CURRENT TREATMENT, CONTINUE TO MONITOR MOOD AND BEHAVIORS. PROVIDE APPROPRIATE REORIENTATION AND REDIRECTION NEEDED.
[2020-05-23 20:06] VITALS: BP 125/68
--- NOTE | 2020-05-23 22:43 | NUR ---
PATIENT WITH NO ADVERSE BEHAVIORS. PT ALERT AND ORIENTED X4. PT ISOLATIVE TO ROOM AND BED SINCE BEGINNING OF SHIFT, REFUSED HS SNACK. DURING 1:1 PATIENT WAS CALM, PLEASANT, STATED SHE HAD A BETTER DAY TODAY AND WAS READY FOR BED. PT MEDICATION COMPLIANT WITHOUT DIFFICULTY AFTER REVIEW. PT DENIES SI/HI, HALLUCINATIONS, AND PAIN. NO NOTED RESPONDING TO INTERNAL STIMULI. PT MOBILIZES SELF USING A WHEELCHAIR WHILE OUT OF BED, ASSIST X1, CONTINENT/INCONTINENT OF BOWEL AND BLADDER. PT CURRENTLY LAYING DOWN WITH EYES CLOSED, RESPIRATIONS EASY AND REGULAR, NO SIGNS OR SYMPTOMS OF DISTRESS NOTED. PLAN IS TO CONTINUE TO MONITOR MOOD AND BEHAVIORS, MAINTAIN Q 15 MIN CHECKS AND PRN FOR SAFETY.
--- NOTE | 2020-05-24 03:44 | NUR ---
24 HOUR CHART CHECK COMPLETED.
--- NOTE | 2020-05-24 05:35 | NUR ---
PATIENT OBSERVED ON Q 15 MIN CHECKS TO HAVE SLEPT APPROX 7 HOURS WITH X1 BRIEF AWAKENING FOR INCONTINENT CARE. NO DISTRESS NOTED.
[2020-05-24 06:59] VITALS: BP 115/57
--- NOTE | 2020-05-24 12:52 | NUR ---
P: DEPRESSED MOOD STATED "10" ON DEPRESSION SCORE AND FEELS "A LITTLE PARANOID" AND ANXIETY "8" ISOLATIVE TO ROOM, ONLY UP FOR MEALS. I: ONE ON ONE FOR EMOTIONAL SUPPORT, ENCOURAGED TO SOCIAL WITH STAFF AND OTHER PATIENTS; PARTICIPATE IN GROUP SESSIONS. R: INEFFECTIVE. PATIENT CONTINUES TO GO BACK TO ROOM AFTER MEALS WITH MUCH ENCOURAGEMENT TO SOCIALIZE WITH OTHERS. PATIENT IS ALERT X 4. SABIHA TO VOICE NEEDS. DENIES HALLUCINATIONS, DELUSIONS, HI/SI OR PAIN. MEDICATION COMPLAINT WITH MEDICATION PROVIDED. Q 15 MINUTE SAFETY CHECKS. 1 PERSON ASSIST NEEDED WITH ACTIVITIES OF DAILY LIVING, CONTINENT OF BOWEL AND BLADDER. SET UP FOR MEALS, INTAKES ARE GOOD WITH ADEQUATE FLUIDS. SELF PROPELS IN WHEELCHAIR AND CAN AMBULATE SHORT DISTANCES WITHOUT DIFFICULTY. P:CONTINUE TO MONITOR MOOD, PARANOID THOUGHT, HALLUCINATIONS OR DELUSIONS. PROIVDE ONE ON ONE FOR EMOTIONAL SUPPORT, REORIENT TO REALITY AND ENCOURAGE GROUP PARTICIPATION NEEDED.
--- NOTE | 2020-05-24 13:18 | NUR ---
DR. PARRA ON UNIT TO ASSESS PATIENT.
--- NOTE | 2020-05-24 15:54 | NUR ---
Shift chart check completed.
[2020-05-24 20:00] VITALS: BP 115/62
--- NOTE | 2020-05-25 00:02 | NUR ---
PATIENT WITH NO ADVERSE BEHAVIORS. PT ALERT AND ORIENTED X4. PT ISOLATIVE TO ROOM AND BED SINCE BEGINNING OF SHIFT, REFUSED HS SNACK. DURING 1:1 PATIENT WAS CALM, PLEASANT, STATED SHE WAS DOING GOOD, JUST SLEEPY BECAUSE SHE DIDNT HAVE A RESTFUL SLEEP THE NIGHT BEFORE, THAT HER MIND "WOULD NOT SHUT OFF". PT MEDICATION COMPLIANT WITHOUT DIFFICULTY AFTER REVIEW. RECEIVED PRN VISTARIL 50MG PO AT 2135 REQUESTED TO ASSIST IN FEELING LESS ANXIOUS/RESTLESS WHEN GOING TO SLEEP. PT DENIES SI/HI, HALLUCINATIONS, AND PAIN. NO NOTED RESPONDING TO INTERNAL STIMULI. PT AMBULATORY WITH A STEADY GAIT WITH X1 ASSIST, ALSO USES A WHEELCHAIR WHILE OUT OF BED. PT CONTINENT/INCONTINENT OF BOWEL AND BLADDER. PT CURRENTLY LAYING DOWN WITH EYES CLOSED, RESPIRATIONS EASY AND REGULAR, PRN VISTARIL EFFECTIVE AT THIS TIME. NO SIGNS OR SYMPTOMS OF DISTRESS NOTED. PLAN IS TO CONTINUE TO MONITOR MOOD AND BEHAVIORS, MAINTAIN Q 15 MIN CHECKS AND PRN FOR SAFETY.
--- NOTE | 2020-05-25 05:51 | NUR ---
PATIENT OBSERVED ON Q 15 MIN CHECKS TO HAVE SLEPT APPROX 9 HOURS WITH X2 BRIEF AWAKENINGS TO USE THE RESTROOM, NO DISTRESS NOTED.
--- NOTE | 2020-05-25 06:00 | NUR ---
24 HOUR CHART CHECK COMPLETED.
[2020-05-25 07:53] VITALS: BP 119/71
--- NOTE | 2020-05-25 09:31 | NUR ---
DR PARRA ON UNIT TO ASSESS PT, UPDATE PROVIDED.
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
[2020-05-25 19:49] VITALS: BP 129/66
--- NOTE | 2020-05-25 22:38 | NUR ---
24 HR chart check completed.
--- NOTE | 2020-05-26 00:59 | NUR ---
PATIENT HAS BEEN IN BED SINCE ONSET OF SHIFT. SLEEPING ON AND OFF. HAS AMB WITH WHEELCHAIR TO BATHROOM X 2. IS ALERT AND PLEASANT. NO SI/HI. NO VOICED DELUSIONS OR HALLUCINATIONS. HAS BEEN MED COMPLIANT. IS ALERT AND ORIENT X 4. IS CONTINENT. WILL CONTINUE TO ENCOURAGE VOICING FEELINGS.
--- NOTE | 2020-05-26 06:07 | NUR ---
PATIENT HAS SLEPT 7+ HOURS UNINTERRUPTED LAST NIGHT.
--- NOTE | 2020-05-26 07:20 | NUR ---
PHYSICAL THERAPY Patient seen this am for therapy visit and was sitting up in activity room w/c upon therapist arrival. Patient identified by name / and was very pleasant this morning, voicing no new c/o's at this time. OT certified dental assistant was present for observation this session as patient transfers sit to stand with Supervision. Patient ambulates ad carmen in hallway SBA, while pushing her w/c around, > 150', demonstrating slow, steady ren and Fair+ posture / balance. Patient was very cautious during all 180 degree turns and c/o of increased B LE weakness > 100 feet. Patient returned to the activity room and remained in her w/c at table awaiting breakfast under [facility] staff Supervision. Will continue per POC as tolerated, total treatment time 16 minutes. Nader Pham, ADMISSIONS CLERK
[2020-05-26 07:46] VITALS: BP 116/68
--- NOTE | 2020-05-26 11:06 | NUR ---
DR PARRA ON UNIT TO ASSESS PT. UPDATE PROVIDED.
--- NOTE | 2020-05-26 11:36 | NUR ---
AM GROUP PT WAS IN BED RESTING AT THE START OF MORNING GROUP THERAPY AND CAME IN TO GROUP WITH ABOUT AN HOUR REMAINING. PT PARTICIPATED BY DOING A WATERCOLOR PAINTING. PT WAS FOCUSED AND ON TASK. PT EXPRESSED NO PARANOID DELUSIONS WHILE IN GROUP.
--- NOTE | 2020-05-26 11:41 | NUR ---
Treatment Plan meeting was held this a.m. with Dr. Stern, FIDE Alonso, RN, AT, BANQUET COORDINATOR-S and Drapery Estimator. Plan for discharge Tueday with return to [facility].
--- NOTE | 2020-05-26 14:14 | NUR ---
Received fax from [facility]. IP ricardo, NRD 05/28. Ref # [id number]
[2020-05-26] MEDS ORDERED: GABAPENTIN400 MG PO (14:22)
[2020-05-26] MEDS ORDERED: GABAPENTIN100 M2 PO (14:22)
--- NOTE | 2020-05-26 15:38 | NUR ---
PM GROUP PT DID NOT ATTEND AFTERNOON GROUP THERAPY. PT WAS IN BED RESTING.
--- NOTE | 2020-05-26 18:02 | NUR ---
PT MEDICATION COMPLIANT WITHOUT DIFFICULTY. ALERT TO PERSON, PLACE, TIME, AND SITUATION. PT INTERACTIVE WITH STAFF AND NURSING STUDENTS. NO HALLUCINATIONS OR DELUSIONS NOTED TODAY. PT HAS BEEN LESS ISOLATIVE TODAY. ATTENDED GROUP. PT RESTS IN BED INBETWEEN MEALS. NO TEARFUL EPISODES NOTED. PT AMBULATING WHILE PUSHING WHEELCHAIR WITH A STEADY GAIT. BEHAVIORS MONITORED WITH Q15 MINUTE SAFETY CHECKS. SEE [facility] FLOWSHEETS FOR SPECIFIC MONITORING.
[2020-05-26] MEDS ORDERED: MIRTAZAPINE15 M2 PO (18:38)
[2020-05-26] MEDS ORDERED: TRIHEXYPHENIDYL2 M3 PO (18:38)
[2020-05-26] MEDS ORDERED: ATARAX,VISTARIL50 MG PO (18:38)
[2020-05-26] MEDS ORDERED: INVEGA SUSTENN234 MG IM (18:38)
[2020-05-26] MEDS ORDERED: NAMENDA-5 PO (18:38)
[2020-05-26 19:09] VITALS: BP 118/64
--- NOTE | 2020-05-26 22:59 | NUR ---
Patient alert and oriented x4. Mood calm,cooperative but isolative to self in patient's room. Patient denies SI/HI or hallucinations. No s/s of any responding to internal stimuli. Patient compliant with HS medications without any difficulty. Provided 1:1 for emotional support. Redirected/reoriented when needed. Plan to continue to encourage medication compliance. Also continue to provide emotional support and continue to redirect/reorient when needed/appropriate. Will also monitor moods/behaviors. Q 15 minute safety checks continued and maintained. See [facility] flowsheet for further documentation.
--- NOTE | 2020-05-27 06:36 | NUR ---
Patient slept approx. 6 hours throughout shift. Q 15 minute safety checks continued and maintained.
--- NOTE | 2020-05-27 07:05 | NUR ---
PHYSICAL THERAPY Patient seen this am for therapy visit and was sitting up in activity room chair at table upon therapist arrival. Patient identified by name / and reports no new c/o's at this time. OT legal administrative assistant was present for observation this session as patient instructed on HEP including seated therex. Patient voiced her understanding as she received photocopy of HEP, then performed seated B LE therex, all planes, 2 x 10 without c/o. Patient remained in chair under [facility] staff Supervision awaiting breakfast and will continue per POC as tolerated. Total treatment time 15 minutes. Nader Pham, RADIAGRAPH OPERATOR
[2020-05-27 07:43] VITALS: BP 120/72
[2020-05-27] MEDS ORDERED: RIVASTIGMINE1 EAC2 T (08:03)
[2020-05-27] MEDS ORDERED: RISPERIDONE M-TA1 MG BC (08:08)
--- NOTE | 2020-05-27 08:30 | NUR ---
Discharge Plan remains for discharge today with return to [facility]. Transportation arranged with [facility] to transport with electrical superintendent time 1:00 p.m.
--- NOTE | 2020-05-27 10:32 | NUR ---
DR PARRA ON UNIT TO ASSESS PT, UPDATE PROVIDED.
--- NOTE | 2020-05-27 11:11 | NUR ---
Spoke with Pt. Legal Guardian Alyssia [employer]on[employer]com via telephone, notified of plans to discharge today and packing house supervisor time. Spoke with [facility]. Rn Traveling at [facility]. Notified of picket labor union time. Discharge Paperwork faxed to facility.
--- NOTE | 2020-05-27 11:45 | NUR ---
AM GROUP PT DID NOT ATTEND MORNING GROUP THERAPY. PT WAS IN BED RESTING AND IS SET TO BE DISCHARGED FROM THE UNIT THIS AFTERNOON.
--- NOTE | 2020-05-27 12:06 | NUR ---
PATIENT IS ALERT AND ORIENTED TO PERSON, PLACE AND TIME. PATIENT STATES SHE IS FEELING A LITTLE ANXIOUS ABOUT GOING BACK TO [facility] BECAUSE SHE WANTS TO QUIT SMOKING AND ALTHOUGH SHE HAS BEEN WEARING THE [employer] PATCH, SHE IS CONCERNED THAT IT WILL BE EXTREMELY DIFFICULT TO QUIT AT THE [facility]. SHE STATES THAT THEY SCHEDULE TIMES TO SMOKE AND THATS WHEN RESIDENTS ARE ABLE TO SOCIALIZE. PATIENT IS GOAL ORIENTED, CALM, PURPOSEFUL, INTERACTIVE AND PARTICIPATIVE. PATIENT DENIES ANY HALLUCINATIONS OR DELUSIONS. PATIENT IS NOT RESPONDING TO INTERNAL STIMULI. PATIENT DENIES SUICIDAL IDEATION AND HOMICIDAL IDEATION. PATIENT IS A SET UP FOR MEALS WITH GOOD INTAKES AND ADEQUATE FLUIDS. PATIENT HAS BEEN SELF PROPELING IN WHEELCHAIR TODAY. PATIENT IS MEDICATION COMPLIANT WITH EDUCATION. PATIENT IS INDEPENDENT WITH ACTIVITIES OF DAILY LIVING. WILL CONTINUE TO MONITOR FOR ANY MOODS/BEHAVIORS. WILL ENCOURAGE PATIENT TO PARTICIPATE IN GROUP ACTIVITIES AND SOCIALIZE WITH PEERS.
--- NOTE | 2020-05-27 13:27 | NUR ---
PATIENT OFF OF FLOOR AT THIS TIME. PATIENT LEFT VIA STRETCHER, 2 EMT'S AND 1 REVENUE COORDINATOR. PATIENT HAS ALL BELONGINGS WITH HER.
--- NOTE | 2020-05-27 14:44 | NUR ---
Faxed discharge clinical to [facility]
--- NOTE | 2020-05-27 14:55 | NUR ---
Patient discharged today [facility]. Follow-up will be with Dr Stern, visiting psychiatrist. While at [facility], pt improved. Pt was no longer voicing paranoid delusions. She was calm and cooperative with staff and participated in programming.
--- NOTE | 2020-05-28 15:27 | NUR ---
PHYSICAL THERAPY CO-SIGN I approve of the Physical Therapy notes written above. Pina Patton PT
== END 2020-05-27 13:27 | DRG 885 ==
LOC: 3N 14:13
PROVIDERS: ADMIT Psychiatry & Neurology Psychiatry; ATTEND Psychiatry & Neurology Psychiatry
DX: F25.9 Schizoaffective disorder, unspecified (principal); G10 Huntington's disease; D64.9 Anemia, unspecified; D69.6 Thrombocytopenia, unspecified; F31.9 Bipolar disorder, unspecified; F22 Delusional disorders; F29 Unspecified psychosis not due to a substance or known physiological condition; H40.9 Unspecified glaucoma; J45.909 Unspecified asthma, uncomplicated; E87.8 Other disorders of electrolyte and fluid balance, not elsewhere classified; F41.9 Anxiety disorder, unspecified; E03.9 Hypothyroidism, unspecified; E78.5 Hyperlipidemia, unspecified; I10 Essential (primary) hypertension; K21.9 Gastro-esophageal reflux disease without esophagitis; G47.00 Insomnia, unspecified; G62.9 Polyneuropathy, unspecified; Z86.711 Personal history of pulmonary embolism; Z86.73 Personal history of transient ischemic attack (TIA), and cerebral infarction without residual deficits; Z87.891 Personal history of nicotine dependence; Z88.5 Allergy status to narcotic agent; Z88.8 Allergy status to other drugs, medicaments and biological substances; Z88.7 Allergy status to serum and vaccine; Z91.041 Radiographic dye allergy status; Z81.1 Family history of alcohol abuse and dependence; Z79.899 Other long term (current) drug therapy